=== PATIENT | female | born 1945 | race Caucasian/White ===

== ENCOUNTER 2016-09-16 08:09 | Inpatient (IN) | payer MEDICARE ==
[~2016-09-16] VITALS: Ht 162.6 cm; Wt 61.0 kg
--- NOTE | ~2016-09-16 | CR63 ---
[facility] A Service of [facility] & [facility] RADIOLOGY TEXT RESULTS PATIENT: TIMBO ARMENTA LOCATION: [facility] : 44 UNIT #: [id number] AGE: [address]: Scott Royal MD SEX: F ORDER DR: [id number] [facility] [address] [place], [place] [address] [id number] MR#: [id number] Acc #: [id number] NAME: TIMBO ARMENTA : 1945 SEX: F STUDY DATE/TIME: 09/16/2016 8:58 UNIT: [facility] ROOM: STUDY DESCRIPTION: CR Chest 2 View Attending Physician: Scott Royal M.D. Ordering Physician: Scott Royal M.D. Primary Care Physician: Castillo Soares M.D. MEDICAL IMAGING REPORT This report is preliminary unless electronic signature is present EXAM Chest x-ray, 09/16 INDICATION Right shoulder pain with chronic productive cough. Smoker. Symptoms since May of this year. FINDINGS Two views of the chest are compared with 07/17/2009. There is a large area of rounded consolidation in the right upper lobe with an air-fluid level. This could reflect a large pulmonary abscess. Tuberculosis not excluded. There is underlying emphysema. The left lung is clear. Heart size is normal. This lesion in the right upper lobe could also reflect a large necrotic mass and I cannot exclude some irregularity of the right side first and second ribs. Followup with a contrast enhanced chest CT recommended. IMPRESSION Emphysema with a large area of rounded consolidation in the right upper lobe. This has an air-fluid level within it. This could reflect a large pulmonary abscess or potentially a necrotic superinfected tumor. Tuberculosis is in the differential diagnosis as well. Additionally, there may be some irregularity of the right first and second ribs. Followup with a contrast enhanced chest CT is recommended. STAT * RESULT Dictated by... Raheem L. Manuel, Jr., M.D. THIS IS AN ELECTRONICALLY VERIFIED REPORT Raheem Jackson Jr., M.D. at 09/16/2016 1:51 PM [facility] A Service of [facility] & [facility] RADIOLOGY TEXT RESULTS PATIENT: TIMBO ARMENTA LOCATION: [facility] #: [id number] : 44 UNIT #: [id number] AGE: [address]: Scott Royal MD SEX: F ORDER DR: LAURA/yun TD: 09/16/2016 09:35 JOB #: [id number] MEDICAL IMAGING REPORT Page 1 of 1 COPY
--- NOTE | ~2016-09-16 | EKG ---
PATIENT: TIMBO ARMENTA UNIT #: [id number] Ventricular Rate: 97 BPM Atrial Rate: 97 BPM P-R Interval: 170 ms QRS Duration: 80 ms Q-T Interval: 350 ms QTC Calculation(Bezet): 444 ms P [place]: 58 degrees Calculated R [place]: 26 degrees Calculated T [place]: 55 degrees Diagnosis Line: Normal sinus rhythm Diagnosis Line: Possible Left atrial enlargement Diagnosis Line: Borderline ECG Diagnosis Line: No previous ECGs available Diagnosis Line: Confirmed by RICH WEBB MD ([id number]) on Diagnosis Line: 09/17/2016 8:28:58 AM INTERPRETING MD: JON SAL
--- NOTE | ~2016-09-16 | OR ---
Unit #: [id number] #: [id number] Patient: TIMBO ARMENTA [id number] [address] [address] [id number] I MR#: [id number] NAME: TIMBO ARMENTA ROOM: 241 Date of Procedure: 09/19/2016 Admission Date: 09/16/2016 Surgeon: Hansel Stafford III, M.D. : 1945 Attending Physician: Rand Kolb M.D. Primary Care Physician: Castillo Soares M.D. OPERATIVE REPORT PREOPERATIVE DIAGNOSIS Left forehead laceration after a fall. POSTOPERATIVE DIAGNOSIS Left forehead laceration after a fall PROCEDURE PERFORMED Primary closure of left forehead laceration. Laceration measured 1.5 cm. ANESTHESIA Local. SPECIMENS None. COMPLICATIONS None apparent. INDICATIONS FOR PROCEDURE This is a 70-year-old lady, who fell in the hospital last night. She sustained a fairly deep laceration just above her left eyebrow. We were asked to see the patient for closure of the laceration. DESCRIPTION OF PROCEDURE After verbal consent was obtained, I prepped the area with Betadine. I injected it with 1% plain lidocaine and used a series of interrupted 5-0 nylon sutures to reapproximate the wound. She tolerated the procedure without any problems and she needs to have her sutures removed in seven days. Dictated by... Hansel Stafford III, M.D. VCL/ricol TD: 09/21/2016 04:19 JOB #: [id number] Unit #: [id number] #: [id number] Patient: TIMBO ARMENTA OPERATIVE REPORT Page 1 of 1 X Hansel Stafford III, MD PROCEDURE OPERATIVE NOTE
--- NOTE | ~2016-09-16 | DS ---
Unit #: [id number] #: [id number] Patient: TIMBO BRITO [id number] [address] [address] [id number] I MR#: [id number] NAME: TIMBO BRITO ROOM: 241 Age: 70 Sex: F Admission Date: 09/16/2016 : 1945 Discharge Date: 09/22/2016 Attending Physician: Rand Kolb M.D. Primary Care Physician: Castillo Soares M.D. DISCHARGE SUMMARY FINAL DIAGNOSES 1. Acute hypoxemic respiratory failure. 2. Post obstructive pneumonia. 3. Nonsmall cell lung cancer. 4. Acute bronchitis. 5. Acute exacerbation of chronic obstructive pulmonary disease. 6. Left periorbital laceration, status post closure of 1.5 cm laceration with 5.0 nylon on September 20, 2016, by Dr. Sanchez. 7. Tobacco abuse. 8. Diabetes mellitus type 2. 9. Hyperlipidemia. 10. Compression fracture of L2 with a history of fall. DISCHARGE MEDICATIONS 1. Glipizide 5 mg q.a.m. 2. Vitamin D 50,000 units q. weekly. 3. Omeprazole 20 mg daily. 4. Percocet 5/325 one tablet q.6 p.r.n. 5. Motrin 400 mg q.6 hours. 6. Aspirin 81 mg daily. 7. Furosemide 40 mg daily. 8. Omnicef 300 mg twice a day until September 25, 2016. 9. Nicotine patch 14 mg daily. 10. Prednisone 20 mg q.a.m. 11. Glucophage 1000 mg p.o. b.i.d. CONSULTATIONS DURING HOSPITALIZATION 1. Dr. Cornejo from endocrinology services. 2. Dr. Guo and Dr. Venegas from pulmonary services. 3. Dr. Junior from hematology/oncology services. 4. Dr. Sanchez from [facility]. DIAGNOSTIC STUDIES LABORATORY: Lab workup on discharge: Sodium 135, potassium 4.3, chloride 96, BUN 23, creatinine 0.7. TSH 3.7. WBC 20.1, hemoglobin 12.7, hematocrit 39.9, and platelet count 493,000. (1) 4.8. IMAGING: Significant radiological studies done during hospitalization were: CT scan of the lumbar spine was done on September 16, 2016 which shows mild superior endplate compression fracture of L2. CTA of the chest was done on September 16, 2016, which shows large cavitary lesion in the right upper lobe. Unit #: [id number] #: [id number] Patient: TIMBO BRITO CT scan of the abdomen and pelvis was done on September 17, which shows no acute finding. There is indeterminate 1.2 cm low attenuation lesions subcapsular segment four of the liver. This may simply represent benign cyst. Bone scan was done on September 19, 2016, which was no suspicious findings. CT scan of the head with contrast was done on September 18, 2016 because of the fall. It shows no enhancing intracranial lesion. Most likely moderate chronic microvascular ischemic changes and old lacunar infarct. Facial bone x-rays were done because the patient had a fall. No obvious acute displaced fracture. Hand x-ray was done. No acute fracture. Mild degenerative changes in the wrist, primarily at the first CMC joint. PROCEDURES PERFORMED DURING HOSPITALIZATION 1. Bronchoscopy was done on September 16, 2016 for cavitary lung mass with endobronchial mass on bronchoscopy, large thick yellowish mucus plug in the right upper lobe and right middle lobe which was lavaged and aspirated. Endobronchial mass obstructing completely the apical segment of right upper lobe. 2. Procedure was performed with left forehead laceration closure, measured about 1.5 cm. HOSPITAL COURSE Ms. Timbo Brito is a 70-year-old female, who was admitted to the hospital with increased shortness of breath, weight loss, as well as back pain. Patient had a fall at home. Patient was found to have L2 compression fracture. The patient was seen by interventional radiology for possible kyphoplasty, but she refused at this time. She just wanted to continue pain medication. Dr. Venegas was consulted for postobstructing pneumonia. Patient was treated with IV antibiotics. Bronchoscopy was done and endobronchial mass was seen. The patient had biopsy done and cytology done. Atypical cells were observed. Dr. Junior was consulted. As per Dr. Junior, this is mostly likely nonsmall cell lung cancer. Patient will need chemotherapy and radiation therapy as outpatient. That evaluation will be done by Dr. Junior. The patient needs to followup with them. The patient had a fall during hospitalization. She obtained a laceration of the forehead. LSA was consulted. The patient had stitches placed. She is doing well. CT scan was negative. The patient does have history of tobacco abuse. Tobacco cessation counseling has been done. The patient had nicotine patch during hospitalization. PHYSICAL EXAMINATION On discharge: VITAL SIGNS: Blood pressure 154/79, respiratory rate 21, pulse 60, temperature 98.7, oxygen saturation is 99%. HEENT: Head is normocephalic. CHEST: Fair air entry. Decreased at the right upper lobe. CARDIOVASCULAR: S1, S2 positive. Regular rhythm. ABDOMEN: Soft. Unit #: [id number] #: [id number] Patient: TIMBO BRITO EXTREMITIES: Negative edema. DISCHARGE INSTRUCTIONS 1. The patient is being discharged to rehab in stable condition. 2. Medications as per med rec. 3. Followup primary care provider in one week. 4. Followup Dr. Junior in three to six days to evaluate for chemotherapy and radiation therapy. 5. Room air (2) , care management coordinator to evaluate for home O2. 6. Followup with Dr. Guo in 7-10 days. 7. Tobacco cessation counseling can be done. Dictated by... Rand Kolb M.D. Mann TD: 09/22/2016 10:06 JOB #: [id number] DISCHARGE SUMMARY Page 1 of 1 X Rand Kolb MD X DISCHARGE SUMMARY
--- NOTE | ~2016-09-16 | CT69 ---
[facility] A Service of [facility] & [facility] RADIOLOGY TEXT RESULTS PATIENT: TIMBO ARMENTA LOCATION: A 241-01 : 43 UNIT #: [id number] AGE: [address]: Rand Kolb MD SEX: F ORDER DR: [id number] [facility] [address] [place], [place] [address] [id number] I MR#: [id number] Acc #: [id number] NAME: TIMBO ARMENTA : 1945 SEX: F STUDY DATE/TIME: 09/19/2016 18:25 UNIT: C2A ROOM: [facility] STUDY DESCRIPTION: CT Head W Contrast Attending Physician: Rand Kolb M.D. Ordering Physician: Douglas Junior M.D. Primary Care Physician: Castillo Soares M.D. MEDICAL IMAGING REPORT This report is preliminary unless electronic signature is present EXAM CT head with contrast dated 09/19/2016 COMPARISON None. HISTORY Staging lung cancer which is newly diagnosed on 09/16/2016. Week since January 2016. Dizzy today. TECHNIQUE This CT exam was performed with one or more of the following radiation dose reduction techniques: automatic control, adjustment of mA and/or kV according to patient size, and iterative reconstruction. FINDINGS CT of the head was obtained with IV contrast in the axial plane. Nonenhancing patchy hypodensities are noted in the periventricular and subcortical white matter with more focal lesions in left basal ganglia and adjacent external/extreme capsule in nearby posterior insular cortex, right thalamus. No enhancing solid intracranial mass lesions, hydrocephalus or midline shift. S-shaped nasal septal deviation is noted with minimal left maxillary and left ethmoid sinus mucosal thickening. Mastoid air cells are well aerated. Bones, orbits with the ocular structures do not demonstrate any significant abnormality, IMPRESSION 1. No enhancing intracranial lesions to suggest metastasis in this modality. 2. Scattered hypodensities are noted in the brain as described above suggestive of moderate chronic microvascular ischemic change and old lacunar infarcts, based on age and statistics. They are nonspecific [facility] A Service of [facility] & [facility] RADIOLOGY TEXT RESULTS PATIENT: TIMBO ARMENTA LOCATION: [facility] 241-01 : 44 UNIT #: [id number] AGE: [address]: Rand Kolb MD SEX: F ORDER DR: findings. Dictated by... Nancy Forrest M.D. THIS IS AN ELECTRONICALLY VERIFIED REPORT Nancy Forrest M.D. at 09/20/2016 7:57 PM CPR/rnr TD: 09/20/2016 05:47 JOB #: [id number] MEDICAL IMAGING REPORT Page 1 of 1 COPY
--- NOTE | ~2016-09-16 | CO ---
Unit #: [id number] #: [id number] Patient: TIMBO ARMENTA [id number] [address] [place], [place] [address] [id number] I MR#: [id number] NAME: TIMBO ARMENTA ROOM: 315 Age: 70 Sex: F Admission Date: 09/16/2016 : 1945 Attending Physician: Rand Kolb M.D. Primary Care Physician: Castillo Soares M.D. Consultation Date: 09/16/2016 CONSULTATION REPORT REASON FOR CONSULT Abnormal CT scan. HISTORY OF PRESENT ILLNESS This is a pleasant, 70-year-old female with a past medical history significant for advanced COPD/emphysema and smoking, who presented to the emergency room with back pain. Patient is a poor historian and has given me various stories and unable to provide very consistent and strong history. However, upon interviewing her, she admitted that she has been coughing up productive sputum for the last few months. She described it as a yellowish to greenish and sometimes with some streak of blood. She stated also that she had a recurrent fever over the last few weeks. When I asked her why she has not seem any doctor, she stated that she went to her nurse practitioner who advised her that she will need to see a small electric engine technician but she was never referred to see anyone. Patient worked in the [employer] in the past and she smoked extensively up to two packs per day at some point. She is currently smoking 10 cigarettes every two to three days. Patient has lost weight over the last couple of years but she is unsure how much. PAST MEDICAL HISTORY 1. COPD. 2. Malnutrition. 3. Osteoporosis. 4. Compression fracture. PAST SURGICAL HISTORY None. SOCIAL HISTORY The patient smoked for at least 30 to 40 years. She is currently down to 10 cigarettes every two to three days. She denied any history of drinking or drug abuse. ALLERGIES No known drug allergy. FAMILY HISTORY Unit #: [id number] #: [id number] Patient: TIMBO ARMENTA Breast cancer. REVIEW OF SYSTEMS Twelve-point review of systems was obtained and was negative except for what was mentioned in the HPI. DIAGNOSTIC STUDIES LABORATORY: Creatinine 0.7, chloride 96, CO2 28. White blood count 21.2, hemoglobin 12.3. IMAGING: Chest x-ray and CT chest are consistent with large cavitary mass in the right upper lobe. ASSESSMENT 1. Cavitary mass. 2. Acute exacerbation of chronic obstructive pulmonary disease. 3. Postobstructive pneumonia. 4. Smoking. 5. Malnutrition. 6. Osteoporosis. PLAN 1. Her CT scan is very concerning for lung malignancy; however, invasive abscess due to organism like Pseudomonas and methicillin-resistant Staphylococcus aureus is unable to be ruled out. 2. Given her age, severe emphysema, patient is not a candidate for invasive intervention at this point. The best approach at this point is to proceed with bronchoscopy and washing plus/minus endobronchial biopsy if there is any mass visible. 3. If patient has no mass to identify on the bronchoscopy then she will be treated with antibiotics for four weeks and then we will reassess with followup CT scan. 4. Will continue patient on broad-spectrum antibiotics. 5. Bronchodilator and mucolytics. 6. DVT prophylaxis. I would like to thank Dr. Kolb for allowing me to be part of this patient's care. Dictated by... Arabella Venegas M.D. EA/xiao TD: 09/16/2016 22:07 JOB #: [id number] Unit #: [id number] #: [id number] Patient: TIMBO ARMENTA CONSULTATION REPORT Page 1 of 1 X ARABELLA PEREZ MD CONSULTATION REPORT
--- NOTE | ~2016-09-16 | CR101 ---
[facility] A Service of [facility] & [facility] RADIOLOGY TEXT RESULTS PATIENT: TIMBO ARMENTA LOCATION: A 241-01 : 43 UNIT #: [id number] AGE: [address]: Rand Kolb MD SEX: F ORDER DR: [id number] [facility] [address] [place], [place] [address] [id number] I MR#: [id number] Acc #: [id number] NAME: TIMBO ARMENTA : 1945 SEX: F STUDY DATE/TIME: 09/19/2016 21:22 UNIT: [facility] ROOM: [facility] STUDY DESCRIPTION: CR Facial Bones Min 3 Views Attending Physician: Rand Kolb M.D. Ordering Physician: Rand Kolb M.D. Primary Care Physician: Castillo Soares M.D. MEDICAL IMAGING REPORT This report is preliminary unless electronic signature is present EXAM Facial bone series dated 09/19/[address] head with contrast dated 09/19/2016. HISTORY Patient fell today with facial pain and bleeding in the left side of the facie. FINDINGS Four views of the face were obtained. No obvious acute displaced fracture is seen. Mastoid air cells and paranasal sinuses appear to be relatively well aerated. CT of the face is more sensitive in evaluation of subtle nondisplaced facial fractures. Orbits appear to be intact also. Dictated by... Nancy Forrest M.D. THIS IS AN ELECTRONICALLY VERIFIED REPORT Nancy Forrest M.D. at 09/20/2016 7:57 PM CPR/rnr TD: 09/20/2016 04:06 JOB #: [id number] MEDICAL IMAGING REPORT Page 1 of 1 COPY
--- NOTE | ~2016-09-16 | NM8 ---
[facility] A Service [facility] RADIOLOGY TEXT RESULTS PATIENT: TIMBO ARMENTA LOCATION: [facility] 241-01 : 44 UNIT #: [id number] AGE: [address]: Rand Kolb MD SEX: F ORDER DR: [id number] [facility] [address] [place], [place] [address] [id number] I MR#: [id number] Acc #: [id number] NAME: TIMBO ARMENTA : 1945 SEX: F STUDY DATE/TIME: 09/19/2016 17:29 UNIT: [facility] ROOM: [facility] STUDY DESCRIPTION: NM Bone or Joint Whole Body Attending Physician: Rand Kolb M.D. Ordering Physician: Douglas Junior M.D. Primary Care Physician: Castillo Soares M.D. MEDICAL IMAGING REPORT This report is preliminary unless electronic signature is present EXAM Whole-body bone scan HISTORY Right lung cancer diagnosed 2 days ago. Bone scan for cancer staging. Back and neck pain. Osteoporosis. COMPARISON Lumbar spine and shoulder x-ray studies 09/16/[address] chest 09/16/[address] abdomen and pelvis 09/17/2016. FINDINGS Following injection of 29.3 mCi technetium MDP, whole body bone scan was performed, demonstrating mild degenerative uptake in both shoulders and at the sternoclavicular joints. No suspicious tracer uptake on the remainder of the exam. No abnormal soft tissue uptake. IMPRESSION No suspicious findings. There are mild degenerative changes in the shoulders and sternoclavicular joints. Dictated by... Que Qureshi M.D. THIS IS AN ELECTRONICALLY VERIFIED REPORT Que Qureshi M.D. at 09/20/2016 1:24 PM DFAbdelrahman/nelly TD: 09/20/2016 10:33 JOB #: [id number] MEDICAL IMAGING REPORT [facility] A Service [facility] RADIOLOGY TEXT RESULTS PATIENT: TIMBO ARMENTA LOCATION: [facility] 241-01 : 44 UNIT #: [id number] AGE: [address]: Rand Kolb MD SEX: F ORDER DR: Page 1 of 1 COPY
--- NOTE | ~2016-09-16 | OR ---
Unit #: [id number] #: [id number] Patient: TIMBO ARMENTA [id number] [address] [address] [id number] I MR#: [id number] NAME: TIMBO ARMENTA ROOM: [facility] Date of Procedure: 09/17/2016 Admission Date: 09/16/2016 Surgeon: Arabella Venegas M.D. : 1945 Attending Physician: Rand Kolb M.D. Primary Care Physician: Castillo Soares M.D. PROCEDURE OPERATIVE NOTE PROCEDURE Therapeutic and diagnostic bronchoscopy with bronchoalveolar lavage and forceps endobronchial mass biopsy. INDICATION FOR PROCEDURE Cavitary lung mass with endobronchial mass on bronchoscopy. FINDINGS 1. Large, thick, yellowish mucus plug in the right upper lobe and right middle lobe which was lavaged and aspirated. 2. Endobronchial mass obstructing completely the apical segment of the right upper lobe. PREMEDICATION 1. Fentanyl 75 mcg IV. 2. Versed 3 mg IV. COMPLICATION None. DESCRIPTION OF THE PROCEDURE An informed consent was obtained from the patient herself after explaining the benefit and risk of this procedure. The patient was prepped and positioned in the proper way, then she was premedicated with fentanyl and versed and then the bronchoscope was advanced through her oral cavity at the level of the vocal cords. 2% lidocaine was instilled and the bronchoscope was advanced into the trachea and at the level of the robert. 1% lidocaine x10 mL was instilled and the bronchoscope was advanced into the left bronchus and the left upper lobe, left lower lobe and lingula were examined which appeared slightly erythematous with mild amount of thin secretions which was lavaged and aspirated and then the bronchoscope was retracted and then readvanced into the right main bronchus and the right upper lobe, right middle lobe and right lower lobe were examined. The patient was noted to have a large, thick, yellowish mucus plug in the right upper lobe and right middle lobe which was lavaged and aspirated. After that, a mass obstructing the apical segment of the right upper lobe was noted. Lavage was obtained from the right upper lobe, then endobronchial biopsy via forceps x6 were obtained with only mild hemorrhage which was stabilized with some ice cold saline. The bronchoscope was retracted out then and patient tolerated her procedure well with no immediate complications. Unit #: [id number] #: [id number] Patient: TIMBO ARMENTA Dictated by... Kathrin Phipps TD: 09/17/2016 11:29 JOB #: [id number] PROCEDURE OPERATIVE NOTE Page 1 of 1 X ARABELLA PEREZ MD PROCEDURE OPERATIVE NOTE
--- NOTE | ~2016-09-16 | CO ---
Unit #: [id number] #: [id number] Patient: TIMBO BRITO [id number] [address] [place], [place] [address] [id number] I MR#: [id number] NAME: TIMBO BRITO ROOM: 241 Age: 70 Sex: F Admission Date: 09/16/2016 : 1945 Attending Physician: Rand Kolb M.D. Primary Care Physician: Castillo Soares M.D. 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 CHIEF COMPLAINT Increased shortness of breath, weight loss, as well as back pain. HISTORY OF PRESENT ILLNESS Miss Brito is a 70-year-old female with extensive smoking history. She presented with symptoms of pneumonia with associated weight loss. She also stated that she hurt her back prompting medical attention. She was found on x-ray to have a very large lesion of the right upper lobe. This lesion appeared to have chest wall and potential rib involvement. Patient underwent a bronchoscopy by Dr. Venegas dated 09/17/16. Patient was noted at that time to have thick yellow mucus plugs to the right upper lobe as well as an endobronchial mass completely obstructing apical segment of the right upper lobe. Biopsies were performed and final pathology is consistent with an infiltrating squamous cell carcinoma of the right upper lobe. Patient was in a great deal of pain. She has been treated with pain medications as well as multiple antibiotics while inhouse and has improved. Patient was initially scheduled for CT-guided biopsy but this has been canceled. The patient has seen Dr. Junior and now staging workup is ongoing including CT scan of the brain with contrast as well as total body bone scan. I have been asked to see this patient regarding possible definitive management RECOMMENDATIONS We will certainly need to complete our staging workup on Miss Brito. She will need studies already ordered as well as an outpatient PET CT scan. Possibilities include primary surgical resection or primary chemoradiotherapy. This will be based on staging workup. It might be that Miss Brito has insufficient pulmonary reserve for such a procedure but we will see if that is a bridge we need to cross once we know extent of disease. I have discussed potential side effects and complications associated with chemoradiotherapy as that is most likely her treatment course. She understands these things. We will have further discussions between the family as well as Dr. Junior and myself and arrive on a final treatment plan once we have completed our workup. It is my pleasure to participate in her care. PAST MEDICAL HISTORY List of chronic medical illnesses not available at this time. Patient does suffer from GE reflux disease, does have history of pneumonia, history of foot cellulitis, also apparent diabetes. Unit #: [id number] #: [id number] Patient: TIMBO BRITO MEDICATIONS Currently include vancomycin, insulin, ibuprofen, piperacillin, Percocet and NicoDerm patch. SOCIAL HISTORY Patient has been a heavy smoker for many years. Patient denies alcohol abuse. FAMILY HISTORY Noncontributory. REVIEW OF SYSTEMS Patient denies headache. She had significant back pain when bending over, prompting her current hospital admission. She reports a significant weight loss, unexplained, a loss of appetite, shortness of breath and coughing and bringing up a great deal of foul-smelling phlegm. She reports increased urinary frequency. PHYSICAL EXAMINATION NOTE: Examination is limited at this time. HEENT: Pupils are equally round and reactive to light and accommodation. Extraocular movements within normal limits. NEUROLOGIC: No neurological deficit appreciated. NECK: Was without gross adenopathy. LUNGS: Breath sounds distant. ABDOMEN: Soft. EXTREMITIES: Without gross edema. DIAGNOSTIC STUDIES LABORATORY DATA: Glucose 83, sodium 136, calcium 9.7, albumin very low at 2.7, elevation of alkaline phosphatase at 153, WBC 25.5, hemoglobin 11.4, platelet count 559,000. Approximately 50 minutes spent discussing case with patient. Dictated by... Kathrin Esparza/xiao TD: 09/19/2016 18:46 JOB #: [id number] CC: Douglas Junior M.D. [facility] Yandel Venegas M.D. Unit #: [id number] #: [id number] Patient: TIMBO BRITO CONSULTATION REPORT Page 1 of 1 X Marcelino Kee MD X CONSULTATION REPORT
--- NOTE | ~2016-09-16 | CR142 ---
[facility] A Service of [facility] & [facility] RADIOLOGY TEXT RESULTS PATIENT: TIMBO ARMENTA LOCATION: [facility] 241 : 44 UNIT #: [id number] AGE: [address]: Rand Kolb MD SEX: F ORDER DR: [id number] [facility] [address]. [place], [place] [address] [id number] I MR#: [id number] Acc #: [id number] NAME: TIMBO ARMENTA : 1945 SEX: F STUDY DATE/TIME: 09/19/2016 21:35 UNIT: [facility] ROOM: [facility] STUDY DESCRIPTION: CR Hand Min 3 Views Rt Attending Physician: Rand Klob M.D. Ordering Physician: Rand Kolb M.D. Primary Care Physician: Castillo Soares M.D. MEDICAL IMAGING REPORT This report is preliminary unless electronic signature is present EXAM Right hand 3 views HISTORY Hand pain and injury after fall today. FINDINGS 3 views of the right hand demonstrate normal bone alignment. No fracture or dislocation. Mild degenerative changes in the wrist, primarily at the first CMC joint. Mild multifocal degenerative changes in the hand. IMPRESSION No acute findings. No fracture. Mild degenerative changes in the wrist, primarily at the first CMC joint. Dictated by... Que Qureshi M.D. THIS IS AN ELECTRONICALLY VERIFIED REPORT Que Qureshi M.D. at 09/20/2016 1:22 PM DFL/rnr TD: 09/20/2016 05:27 JOB #: [id number] MEDICAL IMAGING REPORT Page 1 of 1 COPY
--- NOTE | ~2016-09-16 | CR230 ---
[facility] A Service of [facility] & [facility] RADIOLOGY TEXT RESULTS PATIENT: TIMBO ARMENTA LOCATION: [facility] [address]-06 : 44 UNIT #: [id number] AGE: [address]: Rand Kolb MD SEX: F ORDER DR: [id number] [facility] [address] [place], [place] [address] [id number] I MR#: [id number] Acc #: [id number] NAME: TIMBO ARMENTA : 1945 SEX: F STUDY DATE/TIME: 09/16/2016 9:00 UNIT: [facility] ROOM: [id number] STUDY DESCRIPTION: CR Shoulder Min 2 View Rt Attending Physician: Rand Kolb M.D. Ordering Physician: Scott Royal M.D. Primary Care Physician: Castillo Soares M.D. MEDICAL IMAGING REPORT This report is preliminary unless electronic signature is present EXAM Right shoulder 09/16/2016 INDICATION Shoulder pain since May of this year. FINDINGS 3 views of the shoulder were obtained. No fracture or dislocation is seen in the shoulder. There is no AC joint separation. There is some mild AC joint and glenohumeral joint arthropathy. The primary abnormality is mass-like consolidation with fluid level in the right upper lobe. There are a erosive changes noted in the right first, second, and third ribs which could be due to tumor involvement or infection. Followup with contrast-enhanced chest CT recommended. IMPRESSION 1. The shoulder is negative except for some mild AC joint and glenohumeral joint arthropathy. 2. Abnormal consolidation with a fluid level in the right upper lobe as seen on the chest x-ray. Erosive changes are noted in the adjacent right first, second, and third ribs. This could be due to infection or direct tumor involvement. Contrast-enhanced chest CT is recommended. Dictated by... Raheem Jackson Jr., M.D. THIS IS AN ELECTRONICALLY VERIFIED REPORT Raheem Jackson Jr., M.D. at 09/16/2016 3:50 PM RLK/nelly TD: 09/16/2016 15:[address] [facility] A Service of [facility] & [facility] RADIOLOGY TEXT RESULTS PATIENT: TIMBO ARMENTA LOCATION: [facility] [address]-04 : 44 UNIT #: [id number] AGE: [address]: Rand Kolb MD SEX: F ORDER DR: JOB #: [id number] MEDICAL IMAGING REPORT Page 1 of 1 COPY
--- NOTE | ~2016-09-16 | CT2 ---
[facility] A Service of [facility] RADIOLOGY TEXT RESULTS PATIENT: TIMBO ARMENTA LOCATION: [facility] : 44 UNIT #: [id number] AGE: [address]: Rand Kolb MD SEX: F ORDER DR: [id number] [facility] [address] [place], [place] [address] [id number] I MR#: [id number] Acc #: [id number] NAME: TIMBO ARMENTA : 1945 SEX: F STUDY DATE/TIME: 09/17/2016 23:21 UNIT: [facility] ROOM: [facility] STUDY DESCRIPTION: CT Abd and Pelv W Cont Attending Physician: Rand Kolb M.D. Ordering Physician: Rand Kolb M.D. Primary Care Physician: Castillo Soares M.D. MEDICAL IMAGING REPORT This report is preliminary unless electronic signature is present EXAM CT abdomen and pelvis with contrast INDICATION Nausea today. Lung cancer. Observation for metastatic disease. PROCEDURE Contrast-enhanced CT of the abdomen and pelvis. This CT examination was performed with one or more of the following radiation dose reduction techniques: automatic exposure control, adjustment of mA and/or kV according to patient size, and iterative reconstruction. COMPARISON None. FINDINGS Centrilobular emphysema. ABDOMEN WITH CONTRAST: 1.2 cm indeterminate hypodensity subcapsular segment 4. The spleen, kidneys, adrenal glands, pancreas, gallbladder unremarkable. A few uncomplicated sigmoid diverticula. Moderate colonic stool burden. PELVIS WITH CONTRAST: No pelvic mass or fluid. No aggressive appearing bone lesion. IMPRESSION 1. No acute findings in the abdomen or pelvis. No convincing evidence for metastatic disease. 2. There is a indeterminate 1.2 cm low-attenuation lesion subcapsular segment 4 of the liver. It may simply represent a benign cyst but would be better characterized with MRI or multiphase liver protocol CT. [facility] A Service of [facility] & [facility] RADIOLOGY TEXT RESULTS PATIENT: TIMBO ARMENTA LOCATION: [facility] : 44 UNIT #: [id number] AGE: [address]: Rand oKlb MD SEX: F ORDER DR: 3. Moderately large colonic stool burden. Dictated by... Maldonado Dooley M.D. THIS IS AN ELECTRONICALLY VERIFIED REPORT Maldonado Dooley M.D. at 09/23/2016 8:33 AM LETICIA/brandee TD: 09/18/2016 09:19 JOB #: [id number] MEDICAL IMAGING REPORT Page 1 of 1 COPY
--- NOTE | ~2016-09-16 | CR181 ---
[facility] A Service of [facility] & [facility] RADIOLOGY TEXT RESULTS PATIENT: TIMBO ARMENTA LOCATION: [facility] [address]-66 : 44 UNIT #: [id number] AGE: [address]: Rand Kolb MD SEX: F ORDER DR: [id number] [facility] [address] [place], [place] [address] [id number] I MR#: [id number] Acc #: [id number] NAME: TIMBO ARMENTA : 1945 SEX: F STUDY DATE/TIME: 09/16/2016 9:08 UNIT: [facility] ROOM: [id number] STUDY DESCRIPTION: CR Lumbar Spine 2 or 3 Views Attending Physician: Rand Kolb M.D. Ordering Physician: Scott Royal M.D. Primary Care Physician: Castillo Soares M.D. MEDICAL IMAGING REPORT This report is preliminary unless electronic signature is present EXAM Lumbar spine, 09/16 INDICATION Low back pain since May of this year. Back giving out on patient. FINDINGS Three views of the lumbar spine were obtained. No comparison. There is degenerative endplate disease at multiple levels. There is a mild superior endplate fracture of L2 which is age indeterminate in the absence of comparison studies. Incidental note is made of atherosclerotic disease. There is facet arthropathy in the lower lumbar spine. IMPRESSION Mild superior endplate fracture of L2 which is age indeterminate. I have no comparisons. The exam is otherwise remarkable for relatively mild degenerative disease for patient age. If there is concern for acute fracture, this could be assessed with CT. Dictated by... Raheem Jackson Jr., M.D. THIS IS AN ELECTRONICALLY VERIFIED REPORT Raheem Jackson Jr., M.D. at 09/16/2016 3:50 PM LAURA/yun TD: 09/16/2016 15:26 JOB #: [id number] MEDICAL IMAGING REPORT Page 1 of 1 COPY
--- NOTE | ~2016-09-16 | CT98 ---
[facility] A Service of [facility] & [facility] RADIOLOGY TEXT RESULTS PATIENT: TIMBO ARMENTA LOCATION: [facility] 315-01 : 44 UNIT #: [id number] AGE: [address]: Rand Kolb MD SEX: F ORDER DR: [id number] [facility] [address]. [place], [place] [address] [id number] I MR#: [id number] Acc #: [id number] NAME: TIMBO ARMENTA : 1945 SEX: F STUDY DATE/TIME: 09/16/2016 12:31 UNIT: [address] ROOM: [facility] STUDY DESCRIPTION: CT Lumbar Spine Wo Cont Attending Physician: Rand Kolb M.D. Ordering Physician: Scott Royal M.D. Primary Care Physician: Castillo Soares M.D. MEDICAL IMAGING REPORT This report is preliminary unless electronic signature is present EXAM CT lumbar spine. HISTORY Mid-back pain after bending over yesterday. HISTORY Axial images performed through the lumbar spine without contrast. Multiplanar reconstructed images reviewed at a workstation. This CT exam was performed with one or more of the following radiation dose reduction techniques: automatic exposure control, adjustment of mA and/or kV according to patient size, and iterative reconstruction. FINDINGS There is L2 superior plate compression fracture with approximately 20% loss of the vertebral body height. No retropulsed fragment. At L3-L4, there is circumferential disc bulging and facet hypertrophic changes contributing to [id number] spinal foraminal stenosis. At L4-L5, there is also circumferential disc bulging and facet hypertrophic changes contributing to kswr-ld-[id number] spinal and foraminal stenosis. Mild aortic and iliac atherosclerotic change is identified. Generalized osteopenia. Minimal lower lumbar spine facet arthropathy. IMPRESSION 1. Mild superior endplate compression fracture at L2 with approximately 20% loss of the central vertebral body height. This is most likely on the basis of underlying osteoporosis and I suspect represents an acute fracture given the zone of sclerosis along the superior margin of the fracture. No retropulsed fragment. [facility] A Service of [facility] & [facility] RADIOLOGY TEXT RESULTS PATIENT: TIMBO ARMENTA LOCATION: [facility] 315-01 : 44 UNIT #: [id number] AGE: [address]: Rand Kolb MD SEX: F ORDER DR: 2. L3-L4 and L4-L5 spinal stenosis due to a combination of disc bulging and facet hypertrophic change. Dictated by... Vita Medina M.D. THIS IS AN ELECTRONICALLY VERIFIED REPORT Vita Medina M.D. at 09/17/2016 7:58 AM BARON/jil TD: 09/16/2016 21:37 JOB #: [id number] MEDICAL IMAGING REPORT Page 1 of 1 COPY
--- NOTE | ~2016-09-16 | CO ---
Unit #: [id number] #: [id number] Patient: TIMBO ARMENTA [id number] [address] [place], [place] [address] [id number] I MR#: [id number] NAME: TIMBO ARMENTA ROOM: 241 Age: 70 Sex: F Admission Date: 09/16/2016 : 1945 Attending Physician: Rand Kolb M.D. Primary Care Physician: Castillo Soares M.D. Consultation Date: 09/20/2016 CONSULTATION REPORT HISTORY OF PRESENT ILLNESS Ms. Anderson is a 70-year-old female with long history of tobacco abuse, who is in the hospital, being evaluated for a right lung mass consistent with squamous cell carcinoma. She also was noted to have a L2 compression fracture and significant weight loss. Last night, she was getting up out of bed and tripped over her oxygen line, falling and hitting her left forehead on the edge of the bed, causing about a 6 to 8 mm laceration right over the left eyebrow. The bleeding has been controlled, but there was a bit of separation of the wound edges and every time she blinks her eyes, it separates the wound edges. She has periorbital ecchymoses as you would expect. PAST MEDICAL HISTORY Squamous cell carcinoma of the lung, compression fracture of L2, diabetes, COPD, history of throat polyps, anemia, previous rectovaginal repair, and hysterectomy. MEDICATIONS Lasix, cyclobenzaprine, glipizide, omeprazole, atorvastatin, vitamin D, metformin, artificial Tears, Antonio Aspirin, Lortab. ALLERGIES She is allergic to albuterol, phenylephrine, erythromycin, Benadryl, and Lasix. FAMILY HISTORY Noncontributory. SOCIAL HISTORY Long-term smoker. REVIEW OF SYSTEMS Otherwise unremarkable. In particular, she did not have lightheadedness, dizziness, or syncope. PHYSICAL EXAMINATION GENERAL: The patient is awake, alert, and oriented. VITAL SIGNS: Temperature 98.4. Vital signs are stable. HEENT: Laceration as described. CARDIAC: Regular rate and rhythm. LUNGS: Clear. ABDOMEN: Soft. EXTREMITIES: No edema. NEUROLOGIC: Grossly intact. Unit #: [id number] #: [id number] Patient: TIMBO ARMENTA DIAGNOSTIC STUDIES LABORATORY STUDIES: Most recent basic metabolic panel was within normal limits. White count 25,500; hemoglobin 11.4; platelets 559,000. ASSESSMENT AND PLAN A 70-year-old female, who tripped over her oxygen line and sustained a laceration over the left eye. Every time she blinks her eyes, it separates the wound edges of this wound. She would benefit from a few sutures to keep the skin edges approximated. I discussed that with the patient. She is in agreement. This could be done at the bedside under local anesthetic. Dictated by... Raheem Sanchez M.D. LILIANA/roslyn TD: 09/20/2016 08:12 JOB #: [id number] CONSULTATION REPORT Page 1 of 1 X Raheem Sanchez MD X CONSULTATION REPORT
--- NOTE | ~2016-09-16 | CO ---
Unit #: [id number] #: [id number] Patient: TIMBO ARMENTA [id number] [address] [address] [id number] I MR#: [id number] NAME: TIMBO ARMENTA ROOM: 241 Age: 70 Sex: F Admission Date: 09/16/2016 : 1945 Attending Physician: Rand Kolb M.D. Primary Care Physician: Castillo Soares M.D. Consultation Date: 09/21/2016 CONSULTATION REPORT REASON FOR CONSULTATION Management of the diabetes. HISTORY OF PRESENT ILLNESS This is a 70-year-old female with history of stage III squamous cell carcinoma of the right upper lobe, was on steroids. Her blood sugars were elevated. She was started on insulin. The patient has a very poor intake. She had some recurrent episodes of hypoglycemia. I have been consulted for further management. REVIEW OF SYSTEMS Remarkable for shortness of air, generalized weakness, weight loss. MEDICAL HISTORY Squamous cell carcinoma of the lung, compression fractures of L2, diabetes mellitus, COPD. PAST SURGICAL HISTORY Hysterectomy. MEDICATIONS Current medications list is reviewed. The patient is on Levemir 15 units b.i.d. and NovoLog 5 units a.c. and h.s., Glucotrol 5 mg b.i.d., NovoLog medium dose sliding scale, prednisone 40 mg daily, Protonix. PHYSICAL EXAMINATION GENERAL: She is awake, alert, oriented to time, place, and person. VITAL SIGNS: Stable. VITAL SIGNS: Temperature 97.7, pulse 65, respirations 16, and blood pressure 111/42. HEENT: EOMI. Pupils equally reactive to light. NECK: Supple. No thyromegaly noted. CHEST: Good air entry. CVS: Regular rhythm. No murmurs. ABDOMEN: Soft and nontender. Bowel sounds positive. EXTREMITIES: No edema. NEUROLOGIC: Nonfocal. Moving all extremities. DIAGNOSTIC STUDIES LABORATORY RESULTS: Reviewed. Creatinine is 0.6, potassium is 5.4. A1c 6.3. ASSESSMENT 1. Type 2 diabetes mellitus. Unit #: [id number] #: [id number] Patient: TIMBO ARMENTA 2. Recurrent hypoglycemia likely due to the poor p.o. intake and discontinue Solu-Medrol. 3. Squamous cell carcinoma. PLAN The patient is on tapered steroid doses, which has been decreased to 20 mg daily. Discontinue Levemir and schedule NovoLog with meals. Continue medium dose sliding scale NovoLog. Change Glucotrol 5 mg p.o. q.a.m. daily. Felibertou-Matt fraga.cDilip and h.s. Thanks again for consultation. Dictated by... Kathrin Christine/roslyn TD: 09/21/2016 15:05 JOB #: [id number] CONSULTATION REPORT Page 1 of 1 X Jeri Cornejo MD X CONSULTATION REPORT
--- NOTE | ~2016-09-16 | CT16 ---
[facility] A Service of [facility] & [facility] RADIOLOGY TEXT RESULTS PATIENT: TIMBO ARMENTA LOCATION: [facility] 315-01 : 44 UNIT #: [id number] AGE: [address]: Rand Kolb MD SEX: F ORDER DR: [id number] [facility] [address] [place], [place] [address] [id number] I MR#: [id number] Acc #: [id number] NAME: TIMBO ARMENTA : 1945 SEX: F STUDY DATE/TIME: 09/16/2016 12:33 UNIT: [address] ROOM: [facility] STUDY DESCRIPTION: CT Angio Chest for PE Attending Physician: Rand Kolb M.D. Ordering Physician: Scott Royal M.D. Primary Care Physician: Castillo Soares M.D. MEDICAL IMAGING REPORT This report is preliminary unless electronic signature is present EXAM CT chest, PE protocol HISTORY 70-year-old female with a large right upper lobe lung mass. Patient complaining of right shoulder pain. No prior history of malignancy. COMPARISON STUDIES Chest radiographs 09/16/2016 and 07/17/2009. TECHNIQUE Axial images performed through the chest following IV contrast. Sagittal, 3-D, and coronal reconstructed images reviewed at a workstation. This CT exam was performed with one or more of the following radiation dose reduction techniques: automatic exposure control, adjustment of mA and/or kV according to patient size, and iterative reconstruction. FINDINGS Examination demonstrates a large cavitary mass right upper lobe measuring approximately 9.5 x 11.2 transverse dimensions and up to 11.8 cm in cephalocaudal dimension. This is also central low attenuation compatible with cavitation and necrosis with an air-fluid level in the nondependent portion of the lesion. There is a mildly thickened wall with some evidence of post-obstructive pneumonitis or adjacent atelectasis. The lesion extends through the chest wall with destruction of the second rib and portions of the third rib and portions of the first rib. This supports a more aggressive lesion and it strongly supports that this represents a primary lung neoplasm with central necrosis. Remainder of the lung parenchyma demonstrates severe emphysema with centrilobular emphysema. No effusions. Trachea, bronchi unremarkable. There is some mucus within the trachea which may reflect chronic bronchitis. [facility]. [facility] A Service of [facility] RADIOLOGY TEXT RESULTS PATIENT: TIMBO ARMENTA LOCATION: [facility] 315-01 : 44 UNIT #: [id number] AGE: [address]: Rand Kolb MD SEX: F ORDER DR: Normal enhancement of the pulmonary arteries. No evidence of embolus. Heart size within normal limits. Upper abdomen demonstrates a slight enlargement of the left adrenal gland but no definite metastasis. Osseous structures demonstrate previously visualized L2 compression fracture. This is still felt to represent an osteoporotic fracture and no definite lytic process is identified. Thoracic inlet, extra-thoracic soft tissues are unremarkable. There is mildly enlarged precarinal node measuring 2.3 x 1.6 cm. There are also a few small upper anterior tracheal nodes and right periaortic nodes. IMPRESSION 1. Large cavitary lesion right upper lobe with surrounding compressive atelectasis or post-obstructive pneumonitis. There is invasion of the lesion through the chest wall with marked destruction of the second rib as well as partial destruction of the adjacent third and first ribs. Given the aggressive nature and central cavitation, this most likely represents a cavitary neoplasm, possibly representing squamous cell carcinoma. 2. Changes are superimposed on background centrilobular emphysema. 3. Mild enlargement of the left adrenal gland but no definite metastatic lesion. 4. Partially visualized is the patient's L2 superior endplate compression fracture, probably on the basis of osteoporosis as there does not appear to be a definitive of bone lesion to suggest metastatic disease. Dictated by... Vita Medina M.D. THIS IS AN ELECTRONICALLY VERIFIED REPORT Vita Medina M.D. at 09/17/2016 7:58 AM BARON/jil TD: 09/16/2016 22:07 JOB #: [id number] MEDICAL IMAGING REPORT Page 1 of 1 COPY
--- NOTE | ~2016-09-16 | XA231 ---
[facility] A Service of [facility] & [facility] RADIOLOGY TEXT RESULTS PATIENT: TIMBO BRITO LOCATION: [facility] 241-01 : 44 UNIT #: [id number] AGE: [address]: Rand Kolb MD SEX: F ORDER DR: [id number] [facility] [address] [place], [place] [address] [id number] I MR#: [id number] Acc #: [id number] NAME: TIMBO BRITO : 1945 SEX: F STUDY DATE/TIME: 09/16/2016 14:05 UNIT: [facility] ROOM: [facility] STUDY DESCRIPTION: XA Consult Attending Physician: Rand Kolb M.D. Ordering Physician: Rand Kolb M.D. Primary Care Physician: Castillo Soares M.D. MEDICAL IMAGING REPORT This report is preliminary unless electronic signature is present EXAM Kyphoplasty consult FINDINGS Ms. Brito is a 70-year-old lady who was noted to have a compression fracture at L2 after complaining of back pain after the patient bent over on September 15, 2016. I met with Ms. Brito to discuss kyphoplasty. At this time, she does not desire the procedure. She will contact us if she changes her mind. Dictated by... Luci Sin M.D. THIS IS AN ELECTRONICALLY VERIFIED REPORT Luci Sin M.D. at 09/19/2016 5:50 PM EFRAIN/brandee TD: 09/19/2016 10:31 JOB #: [id number] MEDICAL IMAGING REPORT Page 1 of 1 COPY
[~2016-09-16 08:09] MED LIST: ALBUTEROL17 GM INH; ASPIRIN81 M2 PO; CIPRO PO; CLEOCIN PO; DOXYCYCLINE150 MG PO; LIDODERM30 EA TOP; LORTAB 7.5-5001 TAB PO; METFORMIN PO; NORCO1 TAB 10/3 PO; TYLENOL #3 PO; ZOFRAN PO
[2016-09-16 10:53] LABS: BASOPHIL# 0.2 X10e3 (0-0.3); BASOPHIL% 0.8 % (0-2.5); EOSINOPHIL# 0.1 X10e3 (0-0.7); EOSINOPHIL% 0.5 % (0.0-7.0); HEMATOCRIT 38.3 % (35.0-45.0); HEMOGLOBIN 12.3 gm/dL (12.0-16.0); LYMPHOCYTE# 2.2 X10e3 (1.0-3.5); LYMPHOCYTE% 10.6 % (17.0-45.0); MEAN CELL VOLUME 87.5 FL (83-96); MEAN CORPUSCULAR HEMOGLOBIN 28.1 PG (28-34); MEAN CORPUSCULAR HGB CONC 32.2 g/dL (30-36); MEAN PLATELET VOLUME 7.1 FL (6.5-11.5); MONOCYTE# 1.5 X10e3 (0-1.0); MONOCYTE% 7.2 % (3.0-12.0); NEUTROPHIL# 17.1 X10e3 (1.5-7.1); NEUTROPHIL% 80.9 % (40-75); PLATELET COUNT 538 X10e3 (140-420); RED BLOOD COUNT 4.37 X10e (3.90-5.30); RED CELL DISTRIBUTION WIDTH 15.5 % (11.0-15.5); WHITE BLOOD COUNT 21.2 X10e3 (4.0-10.5)
[2016-09-16 10:54] LABS: DIFF IND YES
[2016-09-16 11:15] LABS: ALBUMIN SERUM 2.7 g/dL (3.5-5.0); BILIRUBIN, DIRECT 0.1 mg/dL (0.0-0.2); BILIRUBIN,INDIRECT 0.3 mg/dL (0.0-0.9); BILIRUBIN,TOTAL 0.4 mg/dL (0.2-2.0); CREATININE SERUM 0.7 mg/dL (0.6-1.4); GLOM FILT RATE Estimated 87.2 mL/min (>60); POTASSIUM 4.2 mmol/L (3.5-5.1); PROTEIN TOTAL SERUM 7.1 g/dL (6.0-8.3)
[2016-09-16 11:16] LABS: PLATELET ESTIMATE INCREASED (NORMAL)
[2016-09-16 11:17] LABS: ANISOCYTOSIS SL
[2016-09-16 13:52] LABS: POC - CKMB 1.2 ng/mL (0.0-7.9); POC - TROPONIN <0.05 ng/mL (<=0.05)
[2016-09-16 14:46] LABS: URINE SOURCE CLEAN CATCH
[2016-09-16 14:51] LABS: URINE APPEARANCE CLEAR; URINE BILIRUBIN NEG (NEG); URINE BLOOD NEG (NEG); URINE COLOR YELLOW; URINE GLUCOSE NEG (NEG); URINE KETONE NEG (NEG); URINE LEUKOCYTE ESTERASE NEG (NEG); URINE NITRATE NEG (NEG); URINE PH 5.5 (5-8); URINE PROTEIN NEG (NEG); URINE SPECIFIC GRAVITY 1.025 (1.003-1.035)
[2016-09-16 15:01] LABS: CULTURE INDICATED? NO
[2016-09-16] MEDS ORDERED: LIPITOR20 MG PO (16:54)
[2016-09-16] MEDS ORDERED: PATIENT'S PHARMACY (16:54)
[2016-09-16] MEDS ORDERED: VITAMIN D250000 UNIT PO (16:54)
[2016-09-16] MEDS ORDERED: METFORMIN PO (16:54)
[2016-09-16] MEDS ORDERED: ASPIRIN81 M2 PO (16:54)
[2016-09-16] MEDS ORDERED: GLUCOTROL XL5 M1 PO (16:54)
[2016-09-16] MEDS ORDERED: ARTIFICIAL TEAR15 M9 OU (16:55)
[2016-09-16] MEDS ORDERED: HYDROCODON-ACE1 EAC9 PO (21:47)
[2016-09-16] MEDS ORDERED: OMEPRAZOLE20 M2 PO (21:49)
[2016-09-16] MEDS ORDERED: ATROVENT 0.03%30 ML (21:50)
[2016-09-16] MEDS ORDERED: PROAIR RESPICL90 MCG INH (21:52)
[2016-09-16] MEDS ORDERED: LASIX20 MG PO (21:56)
[2016-09-17 06:30] LABS: BUN/CREATININE RATIO 27.14; CALCIUM SERUM 9.6 mg/dL (8.4-10.2); CREATININE SERUM 0.7 mg/dL (0.6-1.4); GLOM FILT RATE Estimated 87.2 mL/min (>60); POTASSIUM 4.5 mmol/L (3.5-5.1)
[2016-09-17 15:56] LABS: BODY FLUID APPEARANCE BLOODY; BODY FLUID SOURCE BRONCHIAL LAVAGE
[2016-09-18 07:49] LABS: BUN/CREATININE RATIO 27.14; CALCIUM SERUM 9.2 mg/dL (8.4-10.2); CREATININE SERUM 0.7 mg/dL (0.6-1.4); GLOM FILT RATE Estimated 87.2 mL/min (>60); POTASSIUM 4.5 mmol/L (3.5-5.1)
[2016-09-19 06:03] LABS: HEMATOCRIT 36.7 % (35.0-45.0); HEMOGLOBIN 11.4 gm/dL (12.0-16.0); MEAN CELL VOLUME 88.7 FL (83-96); MEAN CORPUSCULAR HEMOGLOBIN 27.6 PG (28-34); MEAN CORPUSCULAR HGB CONC 31.1 g/dL (30-36); MEAN PLATELET VOLUME 7.1 FL (6.5-11.5); RED BLOOD COUNT 4.14 X10e (3.90-5.30); RED CELL DISTRIBUTION WIDTH 14.8 % (11.0-15.5); WHITE BLOOD COUNT 25.5 X10e3 (4.0-10.5)
[2016-09-19 09:47] LABS: CALCIUM SERUM 9.7 mg/dL (8.4-10.2); CREATININE SERUM 0.7 mg/dL (0.6-1.4); GLOM FILT RATE Estimated 87.2 mL/min (>60); POTASSIUM 4.1 mmol/L (3.5-5.1)
[2016-09-20 06:16] LABS: BASOPHIL# 0.1 X10e3 (0-0.3); BASOPHIL% 0.3 % (0-2.5); DIFF IND YES; EOSINOPHIL# 0.2 X10e3 (0-0.7); EOSINOPHIL% 0.8 % (0.0-7.0); HEMATOCRIT 38.9 % (35.0-45.0); HEMOGLOBIN 12.3 gm/dL (12.0-16.0); LYMPHOCYTE# 2.9 X10e3 (1.0-3.5); MEAN CELL VOLUME 87.6 FL (83-96); MEAN CORPUSCULAR HEMOGLOBIN 27.8 PG (28-34); MEAN CORPUSCULAR HGB CONC 31.7 g/dL (30-36); MEAN PLATELET VOLUME 6.8 FL (6.5-11.5); MONOCYTE# 2.4 X10e3 (0-1.0); MONOCYTE% 9.1 % (3.0-12.0); NEUTROPHIL# 20.5 X10e3 (1.5-7.1); NEUTROPHIL% 78.8 % (40-75); PLATELET COUNT 490 X10e3 (140-420); RED BLOOD COUNT 4.44 X10e (3.90-5.30)
[2016-09-20 07:19] LABS: PLATELET ESTIMATE INCREASED (NORMAL)
[2016-09-20 07:20] LABS: BUN/CREATININE RATIO 47.5; CALCIUM SERUM 9.7 mg/dL (8.4-10.2); CREATININE SERUM 0.4 mg/dL (0.6-1.4); GLOM FILT RATE Estimated 104.8 mL/min (>60)
[2016-09-21 05:36] LABS: HEMATOCRIT 42.5 % (35.0-45.0); HEMOGLOBIN 13.4 gm/dL (12.0-16.0); MEAN CELL VOLUME 88.5 FL (83-96); MEAN CORPUSCULAR HGB CONC 31.6 g/dL (30-36); MEAN PLATELET VOLUME 7.2 FL (6.5-11.5); RED BLOOD COUNT 4.8 X10e (3.90-5.30); RED CELL DISTRIBUTION WIDTH 15.3 % (11.0-15.5); WHITE BLOOD COUNT 22.8 X10e3 (4.0-10.5)
[2016-09-21 06:19] LABS: BUN/CREATININE RATIO 38.33; CALCIUM SERUM 10.1 mg/dL (8.4-10.2); CREATININE SERUM 0.6 mg/dL (0.6-1.4); GLOM FILT RATE Estimated 91.7 mL/min (>60); POTASSIUM 5.4 mmol/L (3.5-5.1)
[2016-09-22 05:30] LABS: HEMATOCRIT 39.9 % (35.0-45.0); HEMOGLOBIN 12.7 gm/dL (12.0-16.0); MEAN CELL VOLUME 87.9 FL (83-96); MEAN CORPUSCULAR HEMOGLOBIN 27.9 PG (28-34); MEAN CORPUSCULAR HGB CONC 31.7 g/dL (30-36); RED BLOOD COUNT 4.54 X10e (3.90-5.30); RED CELL DISTRIBUTION WIDTH 15.2 % (11.0-15.5); WHITE BLOOD COUNT 20.1 X10e3 (4.0-10.5)
[2016-09-22 06:06] LABS: BUN/CREATININE RATIO 32.85; CALCIUM SERUM 9.8 mg/dL (8.4-10.2); CREATININE SERUM 0.7 mg/dL (0.6-1.4); GLOM FILT RATE Estimated 87.2 mL/min (>60); POTASSIUM 4.3 mmol/L (3.5-5.1)
== END 2016-09-22 16:26 | DRG 166 ==
LOC: CED 08:09 → CFTX 08:09 → CED 08:47 → CEDOF 13:49 → CED 14:07 → C3A PCU 21:09 → CEDOF 21:09 → C2A 09-19 07:45
PROVIDERS: Emergency Medicine; Hospitalist; Internal Medicine Pulmonary Disease; Physician Assistant Medical
PROC: B32TYZZ Computerized Tomography (CT Scan) of Left Pulmonary Artery using Other Contrast (ICD-10-PCS; 2016-09-16)
PROC: B32SYZZ Computerized Tomography (CT Scan) of Right Pulmonary Artery using Other Contrast (ICD-10-PCS; 2016-09-16)
PROC: 0BC48ZZ Extirpation of Matter from Right Upper Lobe Bronchus, Via Natural or Artificial Opening Endoscopic (ICD-10-PCS; 2016-09-17)
PROC: 0BC58ZZ Extirpation of Matter from Right Middle Lobe Bronchus, Via Natural or Artificial Opening Endoscopic (ICD-10-PCS; 2016-09-17)
PROC: 0B9C8ZX Drainage of Right Upper Lung Lobe, Via Natural or Artificial Opening Endoscopic, Diagnostic (ICD-10-PCS; 2016-09-17 09:00)
PROC: 0BBC8ZX Excision of Right Upper Lung Lobe, Via Natural or Artificial Opening Endoscopic, Diagnostic (ICD-10-PCS; 2016-09-17 09:00)
PROC: 0HQ1XZZ Repair Face Skin, External Approach (ICD-10-PCS; principal; 2016-09-19)
DX: C34.11 Malignant neoplasm of upper lobe, right bronchus or lung (principal); J96.01 Acute respiratory failure with hypoxia; J18.9 Pneumonia, unspecified organism; S32.029A Unspecified fracture of second lumbar vertebra, initial encounter for closed fracture; E11.65 Type 2 diabetes mellitus with hyperglycemia; J44.1 Chronic obstructive pulmonary disease with (acute) exacerbation; W06.XXXA Fall from bed, initial encounter; Y92.013 Bedroom of single-family (private) house as the place of occurrence of the external cause; S01.81XA Laceration without foreign body of other part of head, initial encounter; Z79.4 Long term (current) use of insulin; Z79.52 Long term (current) use of systemic steroids; F17.200 Nicotine dependence, unspecified, uncomplicated; Z90.710 Acquired absence of both cervix and uterus; J20.9 Acute bronchitis, unspecified
CPT/HCPCS: 36415; 70150; 70460; 71020; 71275; 72100; 72131; 73030; 73130; 74177; 76140; 78306; 80048; 80076; 80202; 81003; 82553; 82947; 83036; 83605; 84132; 84443; 84484; 85025; 85027; 87040; 87070; 87102; 87106; 87116; 87205; 87206; 87252; 87254; 87278; 88108; 88305; 88312; 89051; 93005; 97116; 97163; 97167; 97535; 99285; A9503; G8978-GP; G8979-GP; G8987-GO; G8988-GO; J0171; J0456; J0696; J1815; J1885; J2250; J2543; J2920; J3010; J3370; Q9967

== ENCOUNTER 2016-10-14 15:44 | Inpatient (IN) | payer MEDICARE ==
[~2016-10-14] VITALS: Ht 163.8 cm; Wt 5.7 kg
--- NOTE | ~2016-10-14 | DS ---
Unit #: [id number] #: [id number] Patient: TIMBO ARMENTA [id number] [address] [address] [id number] I MR#: [id number] NAME: TIMBO ARMENTA ROOM: 216 Age: 70 Sex: F Admission Date: 10/15/2016 : 1945 Discharge Date: 10/19/2016 Attending Physician: Rand Kolb M.D. Primary Care Physician: Castillo Soares M.D. DISCHARGE SUMMARY FINAL DIAGNOSES 1. Poor performance status. 2. Failure to thrive. 3. Non-small cell lung cancer stage III. 4. Intractable pain. 5. Hyponatremia, which is resolved. 6. Diabetes mellitus type 2. 7. History of recent postobstructive pneumonia and acute respiratory failure. DIAGNOSTIC STUDIES DISCHARGE LABS: Glucose 119. BMP shows sodium 135, potassium 4.2, chloride 99, BUN 13, creatinine 0.4, calcium 9.5. CBC shows WBC 17.3, hemoglobin 10.4, hematocrit 32.1, platelet count 391. Urine culture was 20,000 colonies mixed growth. Blood culture during hospitalization was no growth. TSH 1.29. Lactic acid on admission was 1.1. Troponin is less than 0.05. SIGNIFICANT RADIOLOGIC STUDIES DONE DURING HOSPITALIZATION: CTA of the chest - No evidence of pulmonary embolism. Findings are consistent with known diagnosis of lung cancer with interval worsening in the appearance of the chest. There is a large mass centered in the right upper lobe, now about 12 centimeter in diameter, larger on comparison. Severe underlying emphysema. No pneumothorax or significant pleural effusion. CONSULTATIONS DURING HOSPITALIZATION 1. Dr. Douglas Junior from oncology service. 2. Dr. Morgan, admitting physician. HOSPITAL COURSE The patient was admitted on October 15, 2016 to [facility] by my colleague, Dr. Morgan with right-sided chest pain. Chest x-ray showed right upper lobe large mass with extension into the soft tissue and some bony destruction in the rib cage. CTA of the chest was done, and pulmonary embolism was ruled out. It looks like her lung cancer has worsened since the last visit. Dr. Junior was consulted during hospitalization. As per Dr. Sandi, the patient has a very little support at home of family to transfer her back and forth for treatments. The patient also has failure to thrive. The patient was seen in the office as outpatient by Dr. Junior, and PET scan was planned. The patient came to the ER in the meantime with generalized weakness and found to be hyponatremic. The patient is being discharged to rehab and then she needs to see Dr. Juniro as an outpatient in 2 weeks or so. The patient does have a poor performance status. The patient's pain was managed with p.o. pain Unit #: [id number] #: [id number] Patient: TIMBO ARMENTA medications. The patient is being discharged to rehab facility on the following medications. DISCHARGE MEDICATIONS 1. Tylenol 650 q.6 p.r.n. 2. Mag oxide 400 mg b.i.d. 3. Neurontin 300 mg b.i.d. 4. Zonegran 100 mg b.i.d. 5. Glucophage 500 mg t.i.d. 6. Lopressor 50 mg daily. 7. Nozinan 25 mg daily. 8. NovoLog low-dose sliding scale. 9. Lortab 7.5/325 mg 1 tablet q.4 p.r.n. PHYSICAL EXAMINATION VITAL SIGNS ON DISCHARGE: Blood pressure is 99/78, respiratory rate 20, pulse 73, temperature 98.7, oxygen saturation 98%. HEENT: Head is normocephalic. RESPIRATORY: Chest has decreased air entry. CVS: Regular rhythm. DISCHARGE INSTRUCTIONS 1. Patient is being discharged to rehab facility. 2. PT/OT at rehab. 3. CBC, BMP to be done in 3-4 days. 4. Follow up with Dr. Junior as outpatient in 2 weeks or so. 1. Dictated by... Kathrin Patel TD: 10/19/2016 13:54 JOB #: [id number] DISCHARGE SUMMARY Page 1 of 1 X Rand Kolb MD DISCHARGE SUMMARY
--- NOTE | ~2016-10-14 | CR72 ---
[facility] A Service of [facility] & [facility] RADIOLOGY TEXT RESULTS PATIENT: TIMBO ARMENTA LOCATION: [facility] : 44 UNIT #: [id number] AGE: [address]: Rand Kolb MD SEX: F ORDER DR: [id number] [facility] [address]. [place], [place] [address] [id number] I MR#: [id number] Acc #: [id number] NAME: TIMBO ARMENTA : 1945 SEX: F STUDY DATE/TIME: 10/14/2016 17:45 UNIT: A ROOM: [facility] STUDY DESCRIPTION: CR Chest Single View Portable Attending Physician: Rand Kolb M.D. Referring Physician: Angel Luke M.D. Ordering Physician: John Seaman M.D. Primary Care Physician: Castillo Soares M.D. MEDICAL IMAGING REPORT This report is preliminary unless electronic signature is present EXAM Portable chest x-ray, 10/14/2016. HISTORY Cough. CHF, diabetes, weakness, short of air. Lung cancer. TECHNIQUE AP radiograph of the chest is presented. COMPARISON Comparison to chest radiograph 09/16/[address] 09/16/2016. FINDINGS The large mass involving the right upper lobe with extension into the soft tissues of the chest wall is grossly unchanged. There is marked destruction of the right second rib and some destruction of right first rib. Rib findings appear more pronounced than in August. This is felt to represent the site of the patient's known malignancy. I see no new mass lesions. The heart is normal in size. The lungs are moderately well inflated. There is underlying emphysema. There is new borderline vascular prominence and mild linear interstitial prominence raising concern for mild vascular congestion and mild interstitial edema. No new areas of dense airspace disease. No pleural effusion or pneumothorax. Patient scheduled for CT chest according to records in DR PACS system. Please see that study for additional assessment. Dictated by... Bunny Michelle M.D. THIS IS AN ELECTRONICALLY VERIFIED REPORT [facility] A Service of [facility] & [facility] RADIOLOGY TEXT RESULTS PATIENT: TIMBO ARMENTA LOCATION: [facility] 216-01 : 44 UNIT #: [id number] AGE: [address]: Rand Kolb MD SEX: F ORDER DR: Bunny Michelle M.D. at 10/16/2016 2:46 PM Maite TD: 10/15/2016 00:23 JOB #: [id number] MEDICAL IMAGING REPORT Page 1 of 1 COPY
--- NOTE | ~2016-10-14 | CO ---
Unit #: [id number] #: [id number] Patient: TIMBO ARMENTA [id number] [address] [place], [place] [address] [id number] I MR#: [id number] NAME: TIMBO ARMENTA ROOM: 216 Age: 70 Sex: F Admission Date: 10/15/2016 : 1945 Attending Physician: Rand Kolb M.D. Primary Care Physician: Castillo Soares M.D. Consultation Date: 10/16/2016 CONSULTATION REPORT REASON FOR EVALUATION Lung CA, please evaluate. HISTORY OF PRESENT ILLNESS A 70-year-old lady whom we saw for the first time about three or four weeks ago has a history of stage III lung cancer, nonsmall cell, and was sent to the rehab center as she has very little support at home or with family to transfer her back and forth for scanning, radiation, and chemotherapy, presents now with poor performance status, hyponatremia, and leukocytosis, all related to her nonsmall cell lung cancer, but mainly failure to thrive and still does not have any outpatient way of getting for radiation or chemotherapy. She has nonsmall cell lung CA with a large mass with involvement of the ribs and the chest wall, right-sided, that was thoroughly evaluated three weeks ago. She came to our office where we were planning to do a PET scan, followed by chemoradiotherapy. She ended up in the hospital with generalized weakness and was found to be hyponatremic, and we were requested to evaluate. PAST MEDICAL HISTORY Remarkable for diabetes and this nonsmall cell lung CA, otherwise, some minor problems plus compression fracture of L2. Please see the chart for further details. FAMILY HISTORY Negative for cluster of cancers. SOCIAL HISTORY Reformed smoker. No alcohol usage. Currently in a rehab center for the next 10 days. CHRONIC MEDICATIONS 1. Pepcid. 2. Prednisone. 3. Sliding scale insulin. 4. Lidoderm. 5. Lovenox. 6. Percocet. 7. Tylenol. ALLERGIES Erythromycin, Benadryl, albuterol, latex, and phenylephrine. REVIEW OF SYSTEMS Mainly remarkable for failure to thrive, ill health, chronic pain mainly Unit #: [id number] #: [id number] Patient: GEOVANY,JERRILYNN in the back while no pain while she is laying down still, appetite is poor, and performance is decreasing steadily and currently is at around 50-60 Karnofsky. Otherwise, on review of systems, six or eight systems were within normal limits. PHYSICAL EXAMINATION GENERAL: Looks older than stated age, laying on the side. Laying on the back causes pain in her spine. LYMPHATICS: No palpable nodes. LUNGS: Poor air entry bilaterally, mild expiratory wheeze, and a few crackles. CARDIOVASCULAR: Distant S1 and S2. ABDOMEN: No palpable liver or spleen. CENTRAL NERVOUS SYSTEM: Grossly intact. Upper and lower extremity musculature there is atrophy, and on the lumbar spine, there is mild tenderness. PELVIC/BREASTS: Not performed. DIAGNOSTIC STUDIES LABORATORY: Chemistries: Glucose 122, BUN 14, creatinine 0.5, sodium 137, potassium 3.8, chloride 104, and CO2 of 26. Hemoglobin 9.7, hematocrit 29.3, white count 18.2, and platelets 380,000. IMAGING: CT of the chest was reviewed and shows progressive disease with the mass getting bigger in size and further rib involvement. IMPRESSION This 70-year-old lady with stage 3 nonsmall cell lung cancer has very poor outpatient support, so she is going to the rehab center which does not allow daily trips for radiation and weekly trips for chemotherapy. So at this point, I am going to have a fili and open discussion with patient and the daughter regarding options available and consider supportive care only [facility], but I doubt that she is ready for [facility] yet, and in case they decide they can arrange for her to come and be treated as an outpatient, then we shall arrange PET scan, followed by radiation and chemotherapy combined. Dictated by... Kathrin Conrad/simin TD: 10/16/2016 15:47 JOB #: [id number] CONSULTATION REPORT Page 1 of 1 X Douglas Junior MD CONSULTATION REPORT
--- NOTE | ~2016-10-14 | CT16 ---
[facility] A Service of [facility] & [facility] RADIOLOGY TEXT RESULTS PATIENT: TIMBO ARMENTA LOCATION: A 216-01 : 44 UNIT #: [id number] AGE: [address]: Rand Kolb MD SEX: F ORDER DR: [id number] [facility] [address] [place], [place] [address] [id number] MR#: [id number] Acc #: [id number] NAME: TIMBO ARMENTA : 1945 SEX: F STUDY DATE/TIME: 10/14/2016 18:52 UNIT: [facility] ROOM: STUDY DESCRIPTION: CT Angio Chest for PE Attending Physician: Bethany Mendoza M.D. Ordering Physician: Ed Doctor [id number] [facility] Primary Care Physician: Castillo Soares M.D. MEDICAL IMAGING REPORT This report is preliminary unless electronic signature is present EXAM CT angiogram chest PE protocol HISTORY Shortness of air, weakness, diarrhea, right shoulder pain right-sided chest pain for 3 days history of lung cancer COMMENT CT of the chest performed in the axial plane during the intravenous administration 100 mL of Isovue-370. This is followed by 3-D coronal MIP reconstructed images for the purpose of CT pulmonary angiography. There is a previous CT chest from 09/16/2016. This CT exam was performed with one or more of the following radiation dose reduction techniques: automatic control, adjustment of mA and/or kV according to patient size, and iterative reconstruction. There is a large necrotic appearing mass lesion centered in the right upper hemithorax with extension through the chest wall and associated right upper rib destruction. It is larger than the 09/16/2016 study and consistent with known lung cancer with some component of interval growth. It is likely that there is central necrosis. On the prior study there was an air-fluid level within the mass. On the current study air is no longer seen. There is some adjacent peripheral atelectasis which is postobstructive in appearance. There is some interval increase in extension of the mass through the upper right chest wall and increase in destruction of right upper ribs. This involvement would account for the right shoulder pain. The mass is increasing in size since 09/16/2016 with current measurements closer to 12.1 x 11.7 x 10.4 cm as compared to 11.8 x 9.5 x 11.2 cm. Again there is adenopathy in the right hilum and mediastinum. The precarinal node currently measures about 2.8 x 1.5 cm compared to 2.4 x 1.5 cm previously and is also mildly increased in size. The postobstructive airspace disease in the more posterior right upper STS. [facility] A Service of [facility] RADIOLOGY TEXT RESULTS PATIENT: TIMBO ARMENTA LOCATION: [facility] 216-01 : 44 UNIT #: [id number] AGE: [address]: Rand Kolb MD SEX: F ORDER DR: lobe is increased since previous. No definite pulmonary embolism is seen. There is again extensive emphysema. There is considerable increase in a peripheral soft tissue nodule in the left upper lobe posteriorly. Previously only a few mm now about 1.1 cm dimension. This is likely a growing metastasis. There is atherosclerotic disease in the thoracic aorta but there is no evidence for thoracic aortic dissection. There is no pleural effusion. There is no pneumothorax. There are coronary artery calcifications but there is no pericardial effusion and there is no evidence for right heart strain. It is what is likely an osteoporotic compression fracture again noted in the upper lumbar spine. IMPRESSION 1. No evidence for pulmonary embolism. 2. Findings are consistent with known diagnosis of lung cancer with interval worsening in the appearance of the chest. There is a large mass centered in the right upper lobe now about 12 centimeter in diameter larger on comparison study of September 16, 2016 with increasing growth through the right chest wall increasing destruction of right upper ribs and increasing adjacent postobstructive atelectasis. Additionally there is likely metastasis in the left upper lobe considerably increased in size from the prior study now about 1.1 cm in dimension in the left upper lobe posteriorly. There is also some increase in size of measured lymph nodes. 3. Severe underlying emphysema. 4. No pneumothorax or significant pleural effusion. No pericardial effusion or thoracic aortic dissection. STAT * RESULT Dictated by... Shira Fountain M.D. THIS IS AN ELECTRONICALLY VERIFIED REPORT Shira Fountain M.D. at 10/14/2016 11:29 PM PRABHJOT/kassie TD: 10/14/2016 19:36 JOB #: [id number] MEDICAL IMAGING REPORT Page 1 of 1 COPY
--- NOTE | ~2016-10-14 | EKG ---
PATIENT: TIMBO ARMENTA UNIT #: [id number] Ventricular Rate: 84 BPM Atrial Rate: 84 BPM P-R Interval: 172 ms QRS Duration: 80 ms Q-T Interval: 352 ms QTC Calculation(Bezet): 415 ms P [place]: 69 degrees Calculated R [place]: 63 degrees Calculated T [place]: 68 degrees Diagnosis Line: Normal sinus rhythm with sinus arrhythmia Diagnosis Line: Possible Left atrial enlargement Diagnosis Line: Borderline ECG Diagnosis Line: When compared with ECG of 16-SEP-2016 08:45, Diagnosis Line: No significant change was found Diagnosis Line: Confirmed by SARKIS BRODY MD ([id number]) on 10/14/2016 Diagnosis Line: 6:24:23 PM INTERPRETING MD: MARY GRACE SAL
--- NOTE | ~2016-10-14 | HP ---
Unit #: [id number] #: [id number] Patient: TIMBO BRITO [id number] [address] [place], [place] [address] [id number] MR#: [id number] NAME: TIMBO BRITO ROOM: 216 Age: 70 Sex: F Admission Date: 10/15/2016 : 1945 Attending Physician: Rand Kolb M.D. Primary Care Physician: Castillo Soares M.D. HISTORY AND PHYSICAL ADMISSION DIAGNOSES 1. Non-small cell lung cancer. 2. 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 3. Leukocytosis, most likely chronic secondary to chronic steroids. 4. History of recent postobstructive pneumonia and acute respiratory failure. 5. Diabetes type 2. HISTORY OF PRESENT ILLNESS Ms. Timbo Brito is a 70-year-old female well known to us since August of this year when she was admitted and was subsequently diagnosed with the postobstructive pneumonia secondary to a right sided non-small cell lung cancer. She comes in with the complaints of the right sided chest pain. The initial evaluation with a chest x-ray showed right upper lobe large mass with extension into the soft tissue and some bony destructions in the ribcage. Also, CT angio was done which ruled out pulmonary embolus and confirmed the previous diagnosis of internal worsening lung cancer with underlying emphysema along with the postobstructive atelectasis and likely mets to the left upper lobe. The patient was admitted and started treatment with the supportive care and symptomatic management. She currently denies any other symptoms. Denies any fever, chills, denies any headache, dizziness. Denies any cough or hemoptysis. Denies any syncope or presyncope, nausea, vomiting, diarrhea or abdominal pain. So, total review of systems on this patient is basically negative except as above. PAST MEDICAL HISTORY As above in HPI. PAST SURGICAL HISTORY Significant for: 1. Hysterectomy. 2. Rectovaginal repair. 3. Recent therapeutic and diagnostic bronchoscopy. MEDICATIONS Current medications on this female include: 1. Prednisone 20 mg daily. 2. Sliding scale insulin. 3. Lidoderm patch. 4. Pepcid. 5. Nystatin powder. 6. Aspirin. 7. Lovenox. Unit #: [id number] #: [id number] Patient: TIMBO BRITO 8. Refresh eyedrops. 9. Percocet. 10. Tylenol. 11. IV fluids with normal saline. ALLERGIES Allergic to albuterol, erythromycin, Benadryl, latex and phenylephrine. SOCIAL HISTORY No current history of tobacco, alcohol or illicit drugs. FAMILY HISTORY Unremarkable. PHYSICAL EXAMINATION GENERAL: The patient is an ill appearing 70-year-old female, otherwise in no acute distress. VITAL SIGNS: BP 105/50, heart rate 64, respirations 20, temperature 97.6. HEENT: Head is atraumatic. Pupils equal, round and reactive to light. Oropharynx clean. NECK: Supple. No masses, no JVD, no bruits. CHEST: Diminished bilaterally. CARDIOVASCULAR SYSTEM: S1, S2. No murmurs. ABDOMEN: Soft, nontender, nondistended. EXTREMITIES: Lower extremities without any cyanosis, clubbing or edema. NEUROLOGICAL: Patient without any focal neuro deficits, answering questions appropriately. DIAGNOSTIC STUDIES IMAGING: Chest x-ray and CT as above. LABORATORY: Chemistry significant for sodium of 131, blood glucose 221, white count 29.4, H and H 11 and 33. ASSESSMENT AND PLAN 1. Lung cancer, non-small cell. Looks like which is worsening. Most likely patient is going to be advised for palliative care and hospice. Will ask Dr. Junior, who is her primary oncologist, for consult. 2. 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 Monitor chemistry closely, currently on fluid restrictions. 3. Leukocytosis. Doubt any type of pneumonia. Imaging status as above. 4. Afebrile. This most likely caused secondary to chronic steroid use. Patient was on prednisone at home. 5. History of recent postobstructive pneumonia and acute respiratory failure. 6. Diabetes type 2. 7. GI and DVT prophylaxis with Pepcid and Lovenox. Dictated by Kathrin Griffiths/adam TD: 10/16/2016 06:10 Unit #: [id number] #: [id number] Patient: TIMBO BRITO JOB #: [id number] HISTORY AND PHYSICAL Page 1 of 1 X Jack Morgan MD HISTORY AND PHYSICAL
[~2016-10-14 15:44] MED LIST changes: +ARTIFICIAL TEAR15 M9 OU; +ATROVENT 0.03%30 ML; +GLUCOTROL XL5 M1 PO; +HYDROCODON-ACE1 EAC9 PO; +LASIX20 MG PO; +LIPITOR20 MG PO; +OMEPRAZOLE20 M2 PO; +PATIENT'S PHARMACY; +PROAIR RESPICL90 MCG INH; +VITAMIN D250000 UNIT PO
[2016-10-14 16:32] LABS: BASOPHIL# 0.1 X10e3 (0-0.3); BASOPHIL% 0.4 % (0-2.5); EOSINOPHIL# 0.1 X10e3 (0-0.7); EOSINOPHIL% 0.5 % (0.0-7.0); LYMPHOCYTE# 2.3 X10e3 (1.0-3.5); LYMPHOCYTE% 7.9 % (17.0-45.0); MEAN CELL VOLUME 87.4 FL (83-96); MEAN CORPUSCULAR HGB CONC 33.2 g/dL (30-36); MEAN PLATELET VOLUME 6.8 FL (6.5-11.5); MONOCYTE# 1.6 X10e3 (0-1.0); MONOCYTE% 5.5 % (3.0-12.0); NEUTROPHIL# 25.2 X10e3 (1.5-7.1); NEUTROPHIL% 85.7 % (40-75); PLATELET COUNT 388 X10e3 (140-420); RED BLOOD COUNT 3.78 X10e (3.90-5.30); RED CELL DISTRIBUTION WIDTH 15.9 % (11.0-15.5); WHITE BLOOD COUNT 29.4 X10e3 (4.0-10.5)
[2016-10-14 16:33] LABS: DIFF IND YES
[2016-10-14 16:58] LABS: ALBUMIN SERUM 2.6 g/dL (3.5-5.0); BILIRUBIN,TOTAL 0.6 mg/dL (0.2-2.0); BUN/CREATININE RATIO 26.25; CALCIUM SERUM 9.8 mg/dL (8.4-10.2); CREATININE SERUM 0.8 mg/dL (0.6-1.4); GLOM FILT RATE Estimated 74.2 mL/min (>60); PLATELET ESTIMATE NORMAL (NORMAL); RBC NORMAL YES
[2016-10-14] MEDS ORDERED: LIPITOR20 MG PO (17:46)
[2016-10-14] MEDS ORDERED: DOCUSATE SODIU100 MG PO (17:46)
[2016-10-14] MEDS ORDERED: ASPIRIN81 M2 PO (17:46)
[2016-10-14] MEDS ORDERED: IBUPROFEN PO (17:47)
[2016-10-14] MEDS ORDERED: GLUCOTROL PO (17:47)
[2016-10-14] MEDS ORDERED: LASIX PO (17:47)
[2016-10-14] MEDS ORDERED: VITAMIN D250000 UNIT PO (17:47)
[2016-10-14] MEDS ORDERED: METFORMIN HCL1000 M2 PO (17:48)
[2016-10-14] MEDS ORDERED: MIRALAX17 GM PO (17:48)
[2016-10-14] MEDS ORDERED: LIDODERM1 EACH TOP (17:48)
[2016-10-14] MEDS ORDERED: PRILOSEC PO (17:49)
[2016-10-14] MEDS ORDERED: OXYCODONE-ACET1 EAC1 PO (17:49)
[2016-10-14] MEDS ORDERED: NYSTATIN1 EAC2 TOP (17:49)
[2016-10-14 17:50] LABS: POC - CKMB <1.0 ng/mL (0.0-7.9); POC - TROPONIN <0.05 ng/mL (<=0.05)
[2016-10-14] MEDS ORDERED: DELTASONE20 MG PO (17:50)
[2016-10-14] MEDS ORDERED: ARTIFICIAL TEAR15 M9 OU (17:50)
[2016-10-14 18:18] LABS: POC - CKMB 1.4 ng/mL (0.0-7.9); POC - TROPONIN <0.05 ng/mL (<=0.05)
[2016-10-14 18:22] LABS: INR 1.2; PROTHROMBIN TIME (PATIENT) 12.6 SECONDS (10.0-11.7)
[2016-10-14 18:29] LABS: ALBUMIN SERUM 2.5 g/dL (3.5-5.0); BILIRUBIN, DIRECT 0.3 mg/dL (0.0-0.2); BILIRUBIN,INDIRECT 0.4 mg/dL (0.0-0.9); BILIRUBIN,TOTAL 0.7 mg/dL (0.2-2.0); PROTEIN TOTAL SERUM 6.3 g/dL (6.0-8.3)
[2016-10-14 19:43] LABS: URINE SOURCE CLEAN CATCH
[2016-10-14 19:55] LABS: URINE APPEARANCE CLEAR; URINE BILIRUBIN NEG (NEG); URINE BLOOD NEG (NEG); URINE COLOR YELLOW; URINE GLUCOSE NEG (NEG); URINE KETONE NEG (NEG); URINE LEUKOCYTE ESTERASE TRACE (NEG); URINE NITRATE NEG (NEG); URINE PROTEIN NEG (NEG); URINE SPECIFIC GRAVITY 1.016 (1.003-1.035)
[2016-10-14 19:58] LABS: CULTURE INDICATED? YES; U HYALINE CASTS AUWI 0-2 /[LPF]; URINE BACTERIA AUWI NEG (NEGATIVE); URINE SQUAMOUS EPITHELIAL CELL OCC /[HPF]
[2016-10-14 21:00] LABS: SODIUM URINE RANDOM 12 mmol/L
[2016-10-14 21:04] LABS: OSMOLALITY,URINE 243 mOsmo/kg (250-900)
[2016-10-15 06:08] LABS: CALCIUM SERUM 9.3 mg/dL (8.4-10.2); CREATININE SERUM 0.5 mg/dL (0.6-1.4); GLOM FILT RATE Estimated 97.4 mL/min (>60); POTASSIUM 3.6 mmol/L (3.5-5.1)
[2016-10-16 06:21] LABS: BASOPHIL# 0.1 X10e3 (0-0.3); BASOPHIL% 0.4 % (0-2.5); EOSINOPHIL# 0.4 X10e3 (0-0.7); HEMATOCRIT 29.3 % (35.0-45.0); HEMOGLOBIN 9.7 gm/dL (12.0-16.0); LYMPHOCYTE# 2.4 X10e3 (1.0-3.5); MEAN CELL VOLUME 87.7 FL (83-96); MEAN CORPUSCULAR HEMOGLOBIN 29.1 PG (28-34); MEAN CORPUSCULAR HGB CONC 33.1 g/dL (30-36); MEAN PLATELET VOLUME 6.9 FL (6.5-11.5); MONOCYTE# 1.3 X10e3 (0-1.0); MONOCYTE% 7.3 % (3.0-12.0); NEUTROPHIL# 14.1 X10e3 (1.5-7.1); NEUTROPHIL% 77.3 % (40-75); PLATELET COUNT 380 X10e3 (140-420); RED BLOOD COUNT 3.34 X10e (3.90-5.30); RED CELL DISTRIBUTION WIDTH 15.5 % (11.0-15.5); WHITE BLOOD COUNT 18.2 X10e3 (4.0-10.5)
[2016-10-16 06:22] LABS: DIFF IND NO
[2016-10-16 07:44] LABS: CALCIUM SERUM 9.2 mg/dL (8.4-10.2); CREATININE SERUM 0.5 mg/dL (0.6-1.4); GLOM FILT RATE Estimated 97.4 mL/min (>60); POTASSIUM 3.8 mmol/L (3.5-5.1)
[2016-10-17 12:17] LABS: BASOPHIL# 0.1 X10e3 (0-0.3); BASOPHIL% 0.5 % (0-2.5); EOSINOPHIL# 0.2 X10e3 (0-0.7); EOSINOPHIL% 1.3 % (0.0-7.0); HEMATOCRIT 32.1 % (35.0-45.0); HEMOGLOBIN 10.4 gm/dL (12.0-16.0); LYMPHOCYTE# 1.7 X10e3 (1.0-3.5); MEAN CELL VOLUME 87.8 FL (83-96); MEAN CORPUSCULAR HEMOGLOBIN 28.5 PG (28-34); MEAN CORPUSCULAR HGB CONC 32.5 g/dL (30-36); MEAN PLATELET VOLUME 6.8 FL (6.5-11.5); MONOCYTE# 1.5 X10e3 (0-1.0); MONOCYTE% 8.6 % (3.0-12.0); NEUTROPHIL# 13.8 X10e3 (1.5-7.1); NEUTROPHIL% 79.6 % (40-75); PLATELET COUNT 391 X10e3 (140-420); RED BLOOD COUNT 3.66 X10e (3.90-5.30); RED CELL DISTRIBUTION WIDTH 15.1 % (11.0-15.5); WHITE BLOOD COUNT 17.3 X10e3 (4.0-10.5)
[2016-10-17 12:19] LABS: DIFF IND NO
[2016-10-17 12:55] LABS: CALCIUM SERUM 9.3 mg/dL (8.4-10.2); CREATININE SERUM 0.5 mg/dL (0.6-1.4); GLOM FILT RATE Estimated 97.4 mL/min (>60); POTASSIUM 4.2 mmol/L (3.5-5.1)
[2016-10-18 07:48] LABS: BUN/CREATININE RATIO 32.5; CALCIUM SERUM 9.5 mg/dL (8.4-10.2); CREATININE SERUM 0.4 mg/dL (0.6-1.4); GLOM FILT RATE Estimated 104.8 mL/min (>60); POTASSIUM 4.2 mmol/L (3.5-5.1)
== END 2016-10-19 17:18 | DRG 644 ==
LOC: CED 15:44 → C2A 20:30 → CED 20:30 → C2A 20:30 → CEDOF 20:30 → CED 20:48 → C2A 21:29 → CEDOF 21:29 → C2A 21:29 → CEDOF 10-15 11:35 → C2A 10-15 11:35
PROVIDERS: Emergency Medicine; Hospitalist; Internal Medicine; Physician Assistant Medical
PROC: B32TYZZ Computerized Tomography (CT Scan) of Left Pulmonary Artery using Other Contrast (ICD-10-PCS; principal; 2016-10-15)
PROC: B32SYZZ Computerized Tomography (CT Scan) of Right Pulmonary Artery using Other Contrast (ICD-10-PCS; 2016-10-15)
DX: E22.2 Syndrome of inappropriate secretion of antidiuretic hormone (principal); C34.11 Malignant neoplasm of upper lobe, right bronchus or lung; E11.9 Type 2 diabetes mellitus without complications; D72.829 Elevated white blood cell count, unspecified; R62.7 Adult failure to thrive; Z79.52 Long term (current) use of systemic steroids; Z90.710 Acquired absence of both cervix and uterus; Z79.4 Long term (current) use of insulin; Z79.82 Long term (current) use of aspirin; Z91.040 Latex allergy status; Z68.23 Body mass index [BMI] 23.0-23.9, adult
CPT/HCPCS: 36415; 71010; 71275; 80048; 80053; 80076; 81003; 82308; 82550; 82553; 82947; 83605; 83930; 83935; 84300; 84443; 84484; 85025; 85610; 87040; 87086; 93005; 94760; 96360; 97116; 97162; 97166; 97530; 97535; 99285; G8978-GP; G8979-GP; G8987-GO; G8988-GO; J1650; J1815; Q9967

== ENCOUNTER 2016-10-23 22:58 | Inpatient (IN) | payer MEDICARE ==
[~2016-10-23] VITALS: Ht 162.6 cm; Wt 61.2 kg
--- NOTE | ~2016-10-23 | CT71 ---
[facility] A Service of [facility] RADIOLOGY TEXT RESULTS PATIENT: TIMBO ARMENTA LOCATION: [facility] : 44 UNIT #: [id number] AGE: [address]: Nino Tanner MD SEX: F ORDER DR: [id number] [facility] [address]. [place], [place] [address] [id number] I MR#: [id number] Acc #: [id number] NAME: TIMBO ARMENTA : 1945 SEX: F STUDY DATE/TIME: 10/24/2016 2:02 UNIT: [address] ROOM: [facility] STUDY DESCRIPTION: CT Head Wo Contrast Attending Physician: Nino Tanner M.D. Ordering Physician: Cisco Moreno D.O. Primary Care Physician: Castillo Soares M.D. MEDICAL IMAGING REPORT This report is preliminary unless electronic signature is present EXAM CT head, noncontrast, 10/24/2016 HISTORY 70-year-old female in the ED with new onset headaches and confusion/mental status changes today. Respiratory distress and shortness of air. History of lung cancer. TECHNIQUE CT examination of the head was performed without IV contrast. This CT exam was performed with one or more of the following radiation dose reduction techniques: automatic exposure control, adjustment of mA and/or kV according to patient size, and iterative reconstruction. COMPARISON No comparison studies here. FINDINGS No definite acute intracranial abnormality is identified. Moderately severe diffuse patchy low-attenuation white matter changes are present, greatest in the frontal lobes. This is nonspecific but most likely related to chronic microvascular disease. Mild generalized cerebral cortical atrophy. Atheromatous calcification of the carotid siphons. No evidence of intracranial hemorrhage, mass, mass effect, acute cerebral edema, or hydrocephalus. No skull fracture. IMPRESSION 1. No acute intracranial abnormality. 2. Moderate diffuse chronic changes as noted above. [facility] A Service of [facility] RADIOLOGY TEXT RESULTS PATIENT: TIMBO ARMENTA LOCATION: [facility] : 44 UNIT #: [id number] AGE: [address]: Nino Tanner MD SEX: F ORDER DR: Dictated by... Manohar Moreno M.D. THIS IS AN ELECTRONICALLY VERIFIED REPORT Manohar Moreno M.D. at 10/27/2016 11:07 PM ALEJA/demi TD: 10/24/2016 13:48 JOB #: [id number] MEDICAL IMAGING REPORT Page 1 of 1 COPY
--- NOTE | ~2016-10-23 | CO ---
Unit #: [id number] #: [id number] Patient: TIMBO BRITO [id number] [address] [place], [place] [address] [id number] I MR#: [id number] NAME: TIMBO BRITO ROOM: 328 Age: 70 Sex: F Admission Date: 10/24/2016 : 1945 Attending Physician: Nino Tanner M.D. Primary Care Physician: Castillo Soares M.D. CONSULTATION REPORT DIAGNOSIS Stage IIIb squamous cell carcinoma, right upper lobe. CHIEF COMPLAINT Mild mental confusion and right chest pain. HISTORY OF PRESENT ILLNESS Ms. Brito is a 70-year-old female, who was previously seen in consultation September 19, 2016. At that time, patient was noted to have a massive lesion of the right upper lobe which biopsies demonstrated to be squamous cell carcinoma. She was in a great deal of pain and had pneumonia in addition to malignancy. Patient was treated with antibiotic therapy and was seen by myself as well as Dr. Junior. The patient was clearly not a surgical candidate due to performance status and the size of the mass. She had invasion of three rib levels from this massive lesion of the right upper lobe as well as enlarged hilar mediastinal lymph nodes. Her staging workup included a total body bone scan which was negative and CT scan of the brain with contrast which demonstrated no metastatic disease. Patient had had history of cellulitis and reflux. She was on insulin, Percocet, and nicotine patches. She had been a heavy smoking for many years. Patient was discharged shortly after her initial evaluation and plans at that time were for an outpatient PET CT scan with chemoradiotherapy to begin promptly. The patient has now gone approximately three weeks with no intervention. She did not appear for her PET CT image. As one might expect, she was re-admitted October 15 and at this time had hyponatremia likely secondary to SIADH. Patient also had postobstructive pneumonia, respiratory failure, diabetes, and other problems which had persisted. A repeat CT scan of the chest with PE protocol was obtained and no pulmonary embolus was identified. The mass had actually enlarged very slightly. I have been asked to re-evaluate Ms. Brito. RECOMMENDATIONS Unfortunately, Ms. Brito has issues with her home situation. She lives and cares for herself but clearly is not able to do that at this time. The issues are that if patient is referred to a [facility] facility then she will not be able to be transported for chemoradiotherapy as this simply will not be paid for. We will need to work with a financial planner to see if arrangements can be made for home health care which will sufficiently care for Ms. Brito and enable us to proceed with therapy. The options are aggressive therapy versus merely supportive care. Patient is likely not a [facility] candidate at this time, although any therapeutic intervention is likely to be palliative given the extent of her disease. I have discussed these issues as best as possible with Ms. Brito and will Unit #: [id number] #: [id number] Patient: RONALD BRITOMITUL discuss them further with Dr. Junior. PAST MEDICAL HISTORY 1. Postobstructive pneumonia. 2. Respiratory failure. 3. Type 2 diabetes. 4. Rectovaginal repair. 5. History of hysterectomy. 6. History of recent bronchoscopy. MEDICATIONS 1. Prednisone 20 mg daily. 2. Sliding scale insulin. 3. Lidoderm patch. 4. Pepcid. 5. Nystatin powder. 6. Aspirin. 7. Lovenox. 8. Eye drops. 9. Percocet for pain. ALLERGIES Patient reports drug allergy to albuterol, erythromycin, Benadryl, latex, and phenylephrine. SOCIAL HISTORY The patient has extensive smoking history. She does not drink. She does not use illicit drugs. FAMILY HISTORY Noncontributory. PHYSICAL EXAMINATION VITAL SIGNS: Currently temperature 97.2, pulse 70, respirations 17, BP 133/54. Height 5 foot 4 inches. Weight 135. BMI 22. HEENT: Pupils equal, round, and reactive to light and accommodation. Extraocular movements within normal limits. GENERAL: Patient is conversant but very mildly confused. She complains of dry mouth. She still has some discomfort in the right upper chest wall. Her appetite is only fair. ABDOMEN: Soft. EXTREMITIES: Without gross edema. Patient is thin and having lost a great deal of skeletal muscle mass. DIAGNOSTIC STUDIES LABORATORY: Glucose 112 currently, BUN 22, creatinine 0.7, calcium 9.6, sodium 141. Albumin very low at 2.4. Liver enzymes within normal limits with the exception of alkaline phosphatase elevated at 149. WBC 22, hemoglobin 10, hematocrit 31.2, platelet count 516,000. Approximately 30 minutes spent discussing case with Ms. Brito. Dictated by... Marcelino Kee M.D. Unit #: [id number] #: [id number] Patient: TIMBO BRITO J/ch TD: 10/26/2016 09:58 JOB #: [id number] CC: Kathrin Robledo M.D. Kusum Nigam, M.D. CONSULTATION REPORT Page 1 of 1 X Marcelino Kee MD X CONSULTATION REPORT
--- NOTE | ~2016-10-23 | DS ---
Unit #: [id number] #: [id number] Patient: TIMBO ARMENTA [id number] [address] [address] [id number] I MR#: [id number] NAME: TIMBO ARMENTA ROOM: 328 Age: 70 Sex: F Admission Date: 10/24/2016 : 1945 Discharge Date: Attending Physician: Nino Tanner M.D. Primary Care Physician: Castillo Soares M.D. DISCHARGE SUMMARY DATE OF TRANSFER TO REHAB 11/04/2016 CONSULTATION DURING HOSPITALIZATION 1. Dr. Junior from Oncology Services. 2. Dr. Yandel Venegas from Pulmonary Services. 3. Dr. Marcelino Kee from Radiology [facility]cology. 4. Dr. Jeri Cornejo from Endocrinology Services. DISCHARGE DIAGNOSES 1. Acute on chronic hypoxic respiratory failure. 2. Post-obstructive pneumonia. 3. Lung cancer stage III. 4. Intractable pain secondary to above. 5. Diabetes mellitus type 2. 6. History of post-obstructive pneumonia. 7. Anemia. 8. Chronic obstructive pulmonary disease. DISCHARGE MEDICATIONS 1. Levaquin 750 mg p.o. daily for five days. 2. Medrol Dosepak. 3. Florastor one tablet b.i.d. 4. Percocet 10/325 mg one tablet q.4 p.r.n. 5. Protonix 40 mg p.o. daily. 6. Megace 400 mg daily. 7. Colace 100 mg twice a day. 8. MiraLax 17 g daily. 9. Combivent mini neb treatment q.i.d. and q.4 p.r.n. 10. Acetaminophen 650 mg q.6 p.r.n. 11. Magnesium oxide 400 mg b.i.d. 12. Lovenox 40 mg subcu daily. 13. Neurontin 300 mg twice a day. 14. Zonegran 100 mg b.i.d. 15. Glucophage 500 mg t.i.d. LAB WORKUP ON DISCHARGE Glucose 241, sodium 138, potassium 5.2, chloride 96, BUN 20, creatinine 0.7. WBC 26.1, hemoglobin 10.4, hematocrit 32.7, and platelet count of 472. Sputum culture was 1+ normal michaela. HOSPITAL COURSE Unit #: [id number] #: [id number] Patient: TIMBO ARMENTA Ms. is a 70-year-old female who has significant history of squamous cell lung cancer. Patient has stage IIIb right upper lobe. The patient is not a surgical candidate as per Oncology. This is due to her performance status and also size of the mass. The patient does have invasion of the (1) level in the right side. The patient is in significant pain because of that. CT scan of the brain does not demonstrate any metastatic disease. The patient was treated for post-obstructive pneumonia by Dr. Venegas. That antibiotic needs to be completed. Zosyn has been changed to Levaquin for five days. The patient is being discharged to rehab facility at this time. The patient is aware that after she goes out of the rehab, which will be most likely five days, she will need to follow up with Dr. Kee and Dr. Junior because she will need either radiation therapy or chemotherapy. As per Dr. Kee, any therapeutic intervention is likely to be palliative given the extent of her disease. Discussed with patient at length, even Dr. Venegas discussed with patient and patient's family. DISCHARGE INSTRUCTIONS 1. The patient is being discharged to rehab. 2. Medication as per medication reconciliation. 3. Dr. Junior and Dr. Kee to see the patient as soon as she gets out of the rehab. 4. PT, OT at rehab. 5. Oxygen to keep saturation above 94%. 6. Patient will be need home O2 and nebulizer treatment once she gets discharged home. 7. Condition is poor. 8. Prognosis is guarded. Dictated by... Rand Kolb M.D. Isamar TD: 11/04/2016 14:22 JOB #: [id number] DISCHARGE SUMMARY Page 1 of 1 X Rand Kolb MD DISCHARGE SUMMARY
--- NOTE | ~2016-10-23 | EKG ---
PATIENT: TIMBO ARMENTA UNIT #: [id number] Ventricular Rate: 105 BPM Atrial Rate: 105 BPM P-R Interval: 172 ms QRS Duration: 80 ms Q-T Interval: 320 ms QTC Calculation(Bezet): 422 ms P [place]: 54 degrees Calculated R [place]: 28 degrees Calculated T [place]: 58 degrees Diagnosis Line: Sinus tachycardia Diagnosis Line: Possible Left atrial enlargement Diagnosis Line: Borderline ECG Diagnosis Line: No previous ECGs available Diagnosis Line: Confirmed by SARKIS BRODY MD ([id number]) on 10/24/2016 Diagnosis Line: 5:12:27 PM INTERPRETING MD: MARY GRACE SAL
--- NOTE | ~2016-10-23 | CT16 ---
[facility] A Service of [facility] RADIOLOGY TEXT RESULTS PATIENT: TIMBO ARMENTA LOCATION: [facility] 328-01 : 44 UNIT #: [id number] AGE: [address]: Nino Tanner MD SEX: F ORDER DR: [id number] [facility] [address] [facility]. [place], [place] [address] [id number] I MR#: [id number] Acc #: [id number] NAME: TIMBO ARMENTA : 1945 SEX: F STUDY DATE/TIME: 10/24/2016 2:05 UNIT: [address] ROOM: [facility] STUDY DESCRIPTION: CT Angio Chest for PE Attending Physician: Nino Tanner M.D. Ordering Physician: Cisco Moreno D.O. Primary Care Physician: Castillo Soares M.D. MEDICAL IMAGING REPORT This report is preliminary unless electronic signature is present EXAM CT chest with contrast, pulmonary arteriography protocol, 10/24/2016. HISTORY 70-year-old female with lung cancer presenting to the ED complaining of new or worsening respiratory distress, shortness of air today. Headaches. Mental status changes. TECHNIQUE CT examination of the chest with IV contrast using pulmonary arteriography protocol. CTA MIP images of the pulmonary arteries were reformatted in multiple planes. This CT exam was performed with one or more of the following radiation dose reduction techniques: automatic exposure control, adjustment of mA and/or kV according to patient size, and iterative reconstruction. COMPARISON CTA chest, 10/14/2016. FINDINGS No pulmonary embolism is demonstrated. Thoracic aorta is normal in caliber. There is no pericardial effusion. Very large malignant mass throughout the central right upper lung extending to the apical chest wall where there is osseous destruction of the first, second, and third ribs and intercostal extension of tumor. Enlarged right hilar and middle mediastinal lymph nodes are unchanged. Left apical subpleural nodule is unchanged. Mildly increased interstitial markings and ground-glass opacity throughout both lungs when compared with the previous study, suggesting superimposed mild pulmonary edema. There is increasing infiltrate in the right upper [facility] A Service of [facility] RADIOLOGY TEXT RESULTS PATIENT: TIMBO ARMENTA LOCATION: [facility] 328-01 : 44 UNIT #: [id number] AGE: [address]: Nino Tanner MD SEX: F ORDER DR: lobe peripheral to the mass, and the right upper lobe bronchus appears increasingly narrowed since the previous study. There is also new mild subpleural infiltrate and atelectasis in the right lung base. Limited upper abdominal images are unremarkable. IMPRESSION 1. No evidence of pulmonary embolism or other acute vascular abnormality within the chest. 2. Again demonstrated is a very large centrally necrotic malignant right upper lobe mass extending from the hilum to the peripheral chest wall at the lung apex where there is destruction of the first through third ribs and intercostal extension of tumor. This is largely unchanged since the previous study obtained 10 days ago. 3. Likely superimposed mild diffuse interstitial pulmonary edema, also noted on chest x-ray. No pleural or pericardial effusion. 4. Increasing narrowing of the right upper lobe bronchus due to adjacent or surrounding lung tumor. Increasing infiltrate in the right upper lobe peripheral to the mass. 5. Stable right hilar and middle mediastinal adenopathy. Stable left apical lung nodule. Dictated by... Manohar Moreno M.D. THIS IS AN ELECTRONICALLY VERIFIED REPORT Manohar Moreno M.D. at 10/27/2016 11:07 PM ALEJA/lorraine TD: 10/24/2016 13:49 JOB #: [id number] MEDICAL IMAGING REPORT Page 1 of 1 COPY
--- NOTE | ~2016-10-23 | HP ---
Unit #: [id number] #: [id number] Patient: TIMBO BRITO [id number] [address] [address] [id number] I MR#: [id number] NAME: TIMBO BRITO ROOM: 328 Age: 70 Sex: F Admission Date: 10/24/2016 : 1945 Attending Physician: Nino Tanner M.D. Primary Care Physician: Castillo Soares M.D. HISTORY AND PHYSICAL REASON FOR ADMISSION 1. Shortness of air, dyspnea. 2. Hypercapnic respiratory failure. 3. Worsening xwj-outgz-cyxr lung cancer. 4. Chronic hyponatremia. 5. Diabetes. 6. History of recent pneumonia. 7. Anemia of chronic disease. HISTORY OF PRESENT ILLNESS Ms. Brito is a 70-year-old female with recent history of postobstructive pneumonia. She was seen in this hospital earlier this month. At that time imaging study showed worsening right upper lobe large mass. The patient does have a history of huz-pugol-kksf lung cancer. She was evaluated per Dr. Junior at that time and it was felt the patient was not ready for palliative care. The patient was treated and discharged for hyponatremia, which looks like chronic for this lady, most likely secondary to SIADH secondary to lung mass. The patient was readmitted overnight secondary to shortness of air and dyspnea. The patient is a very poor historian and most likely secondary to toxic metabolic encephalopathy. She denies any chest pain. Denies any headache, dizziness. She states that she has been having some fevers and chills. Denies any nausea, vomiting, diarrhea, abdominal pain. PAST MEDICAL HISTORY 1. History of lung cancer. 2. Hyponatremia. 3. Diabetes. 4. Chronic obstructive pulmonary disease. 5. Emphysema. 6. History of tobacco use. PAST SURGICAL HISTORY 1. Hysterectomy. 2. Rectovaginal repair. 3. Bronchoscopy. SOCIAL HISTORY No current history of tobacco, alcohol or illicit drugs. FAMILY HISTORY Unremarkable. HOME MEDICATIONS Unit #: [id number] #: [id number] Patient: TIMBO BRITO 1. Magnesium oxide. 2. Neurontin. 3. Oxycodone. 4. Tylenol. 5. NovoLog. 6. Glucophage. 7. Colace. 8. MiraLAX. 9. Percocet. 10. Probiotic. 11. Levaquin. REVIEW OF SYSTEMS Twelve point review of systems for this patient is negative except as above. PHYSICAL EXAMINATION GENERAL: The patient is an ill-appearing 70-year-old female, otherwise in no acute distress. VITALS: Blood pressure 105/45, heart rate 76, respiratory rate 18, temperature 97.5. HEENT: Head is atraumatic. Pupils equal, round and reactive to light and accommodation. Extraocular muscles intact. Oropharynx clear. NECK: Supple. No jugular venous distension. No bruits. CHEST: Diminished bilaterally. HEART: S1 and S2. No murmurs. ABDOMEN: Soft, nontender and nondistended. EXTREMITIES: Lower extremities without any significant cyanosis, clubbing or edema. NEUROLOGIC: The patient is without any focal deficits. She is alert and oriented, however, slightly confused. DIAGNOSTIC STUDIES LABORATORY: ABG significant for CO2 46.3. Chemistry significant for sodium of 131. Blood glucose 181. PT/INR 12.2 and 1.1. White count 28.9, hemoglobin 10.7, hematocrit 32.8. ASSESSMENT/PLAN 1. Shortness of air, dyspnea: Questionable recurrent pneumonia, status post evaluation per pulmonary. Continue antibiotics per pulmonary. Continue bronchodilator. 2. Hypercapnic respiratory failure: As above. 3. Worsening xwd-cscnp-qgxd lung cancer: Will ask Dr. Junior for reevaluation. Last time she was discharged she was supposed to follow up as an outpatient with PET scan. 4. Chronic hyponatremia: Follow sodium daily. 5. Diabetes: Resume home medications along with sliding scale insulin. 6. History of recent pneumonia: As above. 7. Anemia of chronic disease: Monitor hemoglobin and hematocrit. 8. GI and DVT prophylaxis: Started on PPI and Lovenox. Dictated by Kathrin Griffiths Unit #: [id number] #: [id number] Patient: TIMBO BRITO TD: 10/25/2016 07:27 JOB #: [id number] HISTORY AND PHYSICAL Page 1 of 1 X Cathy,Jack SAL X HISTORY AND PHYSICAL
--- NOTE | ~2016-10-23 | A ---
[facility] Nutrition Therapy DATE: 11/04/16 Patient: TIMBO ARMENTA Physician: JEREMY Address: [address] [facility] Room/Bed: [address] [place] [address], Zip: [place] [address] Admit Date: 10/24/16 Date of : 44 Height: 5 4 Weight: 134 61.2 NUTRITIONAL ASSESSMENT: REASON: Seen due to length of stay Admitting dx: 70 y/o female admitted with respiratory distress PMH: DM, recent PNA, COPD, emphysema, lung cancer, anemia, hx of tobacco use, hyponatremia Anthropometrics: Ht: 64", Wt: 132-134 lbs, BMI: 22 (normal), past weights: 125-160 lbs Labs: K+ 5.2, glucose 162, POC 146-241, A1C 6.3 (09/16/16) Meds: Colace, megace, prednisone, high SSI, zofran prn, PPI, mag-ox I/O & Bowel function: BM 11/03 Skin Integrity: stage II pressure ulcer coccyx, no edema Assessment: Chart reviewed, events noted. See admitting dx and PMH as stated above. RD assessing due to length of stay. Patient has worsening lung cancer, is on 3-4 L nasal cannula, generalized weakness noted. No new malnutrition risk screening performed upon admission, therefore RD was not triggered to assess regarding pt's pressure ulcer. Weight appears stable per past weights. Patient is on 2g sodium diet. Upon entry to room, she is wailing for more pillows. She did not answer RD questions, however I did observe 100% of her lunch tray consumed with no chewing or swallowing difficulties. See recs below, will follow. Dx: Increased nutrient needs r/t wound healing requirements AEB stage II pressure ulcer. Intervention: consistent carb diet, wound care prn Monitoring, Evaluation and Goals: 1. PO intake 50-100% of meals. 2. Glucose WNL. 3. Promote wound healing. Monitor: per protocol, criteria to determine if above goals met Recommendations: 1. Please change diet to 60 g carb/meal. Encourage adequate protein intake. [facility] Nutrition Therapy DATE: 11/04/16 Patient: TIMBO ARMENTA Physician: NAISUR Address: [address] [place] [address] Room/Bed: [address] [place] [address], Zip: [place] [address] Admit Date: 10/24/16 Date of : 44 Height: 5 4 Weight: 134 61.2 2. Wound care prn. 3. Optimize insulin regimen to promote adequate blood glucose control. RD will follow Mild nutrition risk Respectfully, Umu Beatty RD, [facility] [employer] [facility] cc: client file
--- NOTE | ~2016-10-23 | CO ---
Unit #: [id number] #: [id number] Patient: TIMBO ARMENTA [id number] [address] [place], [place] [address] [id number] MR#: [id number] NAME: TIMBO ARMENTA ROOM: 328 Age: 70 Sex: F Admission Date: 10/24/2016 : 1945 Attending Physician: Nino Tanner M.D. Primary Care Physician: Castillo Soares M.D. Consultation Date: 10/31/2016 CONSULTATION REPORT REASON FOR CONSULTATION Uncontrolled blood sugars. HISTORY OF PRESENT ILLNESS A 70-year-old female, who has a history of stage III lung CA right low on chemotherapy and radiation treatment. The patient had been admitted with respiratory failure, postoperative pneumonia. She is currently on Solu-Medrol. Her blood sugar has been running 400 to 500 mg/dL. I have been asked to see the patient for further management. PAST MEDICAL HISTORY Type 2 diabetes mellitus, respiratory failure, stage III lung CA. PAST SURGICAL HISTORY Hysterectomy and history of bronchoscopy. MEDICATIONS Prednisone 20 mg daily, Pepcid, aspirin, Lovenox. ALLERGIES Multiple drug allergies to erythromycin, Benadryl, latex. SOCIAL HISTORY History of extensive tobacco use. No alcohol. REVIEW OF SYSTEMS A 12-point review of systems completed remarkable for the increasing shortness of air, loss of weight, high blood sugars, but declines any chest pains. Rest of the review of systems unremarkable. PHYSICAL EXAMINATION GENERAL: She is in no acute respiratory distress. VITAL SIGNS: Temperature 97.2, pulse 84, respiratory rate 18, blood pressure 98/45. HEENT: EOMI. Pupils equally reactive to light. NECK: Supple. No thyromegaly. CHEST: Decreased air entry bilaterally with wheezing . CVS: Regular rhythm. No murmurs. ABDOMEN: Soft and nontender. Bowel sounds positive. EXTREMITIES: No edema noted. DIAGNOSTIC STUDIES LABORATORY RESULTS: Reviewed. A1c 09/16/2016 was 6.3. Accu-Chek log is Unit #: [id number] #: [id number] Patient: TIMBO ARMENTA reviewed. ASSESSMENT 1. Type 2 diabetes mellitus with worsening blood sugars secondary to the IV steroids. 2. Stage III lung cancer. PLAN At this time, I am going to discontinue the patient's Levemir dose. Change sliding scale to medium dose. Discussed with the patient and then to avoid sweets and juices. Start the patient on NPH 25 units before each Solu-Medrol dose. Accu-Cheks a.c. and h.s. and discussed with the family. Dictated by... Kathrin Christine/roslyn TD: 10/31/2016 18:25 JOB #: [id number] CONSULTATION REPORT Page 1 of 1 X Jeri Cornejo MD X CONSULTATION REPORT
--- NOTE | ~2016-10-23 | CR72 ---
[facility] A Service of [facility] & [facility] RADIOLOGY TEXT RESULTS PATIENT: TIMBO ARMENTA LOCATION: [facility] 328-01 : 44 UNIT #: [id number] AGE: [address]: Nino Tanner MD SEX: F ORDER DR: [id number] [facility] [address] [facility] [address] [place] [place], [place] [address] [id number] I MR#: [id number] Acc #: [id number] NAME: TIMBO ARMENTA : 1945 SEX: F STUDY DATE/TIME: 10/23/2016 23:25 UNIT: [address] ROOM: [facility] STUDY DESCRIPTION: CR Chest Single View Portable Attending Physician: Nino Tanner M.D. Ordering Physician: Cisco Moreno D.O. Primary Care Physician: Castillo Soares M.D. MEDICAL IMAGING REPORT This report is preliminary unless electronic signature is present EXAM Chest x-ray, 10/23/2016. HISTORY 70-year-old female with history of large lung cancer in the right upper chest, presenting to the ED with shortness of air and weakness beginning earlier today. TECHNIQUE AP portable upright chest x-ray. FINDINGS The examination again demonstrates a very large malignant mass in the right upper chest with chest wall invasion and bony destruction of the first, second and third ribs, best demonstrated on the recent chest CT of 10/14/2016. Background pulmonary emphysema. Today, diffuse interstitial markings have increased since 10/14/2016. This may represent mild pulmonary interstitial edema, which may be cardiogenic or noncardiogenic. Heart size is normal. Shallow lung expansion. No visible pleural effusion or pneumothorax. IMPRESSION 1. Large malignant mass in the right upper chest with destructive chest wall invasion. 2. Possible mild interstitial pulmonary edema, new since 10/14/2016. Dictated by... Manohar Moreno M.D. THIS IS AN ELECTRONICALLY VERIFIED REPORT Manohar Moreno M.D. at 10/27/2016 11:06 PM CAMELIAW/cary STS. [facility] A Service of [facility] & [facility] RADIOLOGY TEXT RESULTS PATIENT: TIMBO ARMENTA LOCATION: [facility] 328-01 : 44 UNIT #: [id number] AGE: [address]: Nino Tanner MD SEX: F ORDER DR: TD: 10/24/2016 13:06 JOB #: [id number] MEDICAL IMAGING REPORT Page 1 of 1 COPY
--- NOTE | ~2016-10-23 | CO ---
Unit #: [id number] #: [id number] Patient: TIMBO ARMENTA [id number] [address] [address] [id number] I MR#: [id number] NAME: TIMBO ARMENTA ROOM: 328 Age: 70 Sex: F Admission Date: 10/24/2016 : 1945 Attending Physician: Nino Tanner M.D. Primary Care Physician: Castillo Soares M.D. Consultation Date: 10/24/2016 CONSULTATION REPORT REASON FOR CONSULTATION Shortness of breath. HISTORY OF PRESENT ILLNESS This is a 70-year-old female, who is well known to our service from previous admission, with past medical history significant for advanced COPD and squamous cell cancer, who presented to the emergency room from the intermediate with respiratory distress and hypoxia. Patient is confused why she is here and she is providing conflicting information; however, per the ED report, patient was found to be severely hypoxic at the intermediate with oxygen saturation of 68%. Patient admitted that she has been coughing and she had fever two to three days ago. No nausea, vomiting or diarrhea. No chest pain but at this point however she said three days ago she had severe chest pain and then she thought that her cancer broke in small pieces and her chest pain resolved after that. PAST MEDICAL HISTORY 1. Advanced COPD. 2. Non-small cell lung cancer. 3. Hyponatremia. 4. Diabetes type 2. 5. Malnutrition. PAST SURGICAL HISTORY 1. Bronchoscopy with endobronchial biopsy. 2. Hysterectomy. 3. Rectovaginal repair. HOME MEDICATION 1. Prednisone. 2. Sliding scale. 3. Lidoderm. 4. Pepcid. 5. Nystatin. 6. Aspirin. 7. Lovenox. 8. Percocet. 9. Tylenol. ALLERGIES Unit #: [id number] #: [id number] Patient: TIMBO ARMENTA 1. Albuterol. 2. Erythromycin. 3. Benadryl. 4. Latex. SOCIAL HISTORY Patient quit smoking a few weeks ago. No history of alcohol or drug abuse. FAMILY HISTORY Noncontributory. REVIEW OF SYMPTOMS A 12-point review of symptoms was obtained and was negative except for what was mentioned in the HPI. PHYSICAL EXAMINATION GENERAL: The patient is in no acute distress. VITAL SIGNS: Blood pressure is 110/62. Respiratory rate 18. O2 saturation 94%. HEENT: Normocephalic and atraumatic. PERRLA. EOMI. NECK: Supple. No JVD. No lymphadenopathy. CHEST: Diminished breath sounds bilaterally. HEART: S1, S2. No murmur, gallops or rubs. ABDOMEN: Soft, nontender. Bowel sound is positive. No hepatosplenomegaly. EXTREMITIES: No edema or cyanosis. SKIN: No rashes. CLOTH GRADER: Awake, alert, oriented x3. No focal motor/sensory deficit. DIAGNOSTIC STUDIES LABORATORY: Creatinine 0.7, blood sugar 222, chloride 96, sodium 126. IMAGING: CT angiogram is reviewed and noted by me. ASSESSMENT 1. Dklsg-fi-xbgugwo hypoxic respiratory failure. 2. Rule out postobstructive pneumonia. 3. Chronic obstructive pulmonary disease exacerbation from last admission. 4. Diabetes. 5. Non-small cell lung cancer. 6. Malnutrition. 7. Extensive history of smoking. PLAN 1. Will wean oxygen down to baseline which is 2 to 3 L nasal cannula. 2. Will add bronchodilator and mucolytics. 3. Will continue IV steroid since she was on oral steroid at the intermediate. 4. Patient was placed on vancomycin, tobramycin and Zosyn which will continue pending further culture. 5. Oncology evaluation. 6. Patient may need hospice eval at some point. I jacquelin like to thank Dr. Kolb for allowing me to be part of this patient's care. Unit #: [id number] #: [id number] Patient: TIMBO ARMENTA Dictated by... Kathrin Phipps TD: 10/24/2016 21:42 JOB #: [id number] CONSULTATION REPORT Page 1 of 1 X ARABELLA PEREZ MD CONSULTATION REPORT
[~2016-10-23 22:58] MED LIST changes: +DELTASONE20 MG PO; +DOCUSATE SODIU100 MG PO; +GLUCOTROL PO; +IBUPROFEN PO; +LASIX PO; +LIDODERM1 EACH TOP; +METFORMIN HCL1000 M2 PO; +MIRALAX17 GM PO; +NYSTATIN1 EAC2 TOP; +OXYCODONE-ACET1 EAC1 PO; +PRILOSEC PO
[2016-10-23 23:22] LABS: ARTERIAL BLD GAS O2 SATURATION 96.9 % (90.0-100.0); ARTERIAL BLOOD GAS ALLEN TEST NORMAL; ARTERIAL BLOOD GAS ART SITE RIGHT RADIAL; ARTERIAL BLOOD GAS CARBOXY HB 1.5 %sat (0.0-9.0); ARTERIAL BLOOD GAS DELIVERY NASAL CANNULA; ARTERIAL BLOOD GAS HCO3 29.9 mmol/L; ARTERIAL BLOOD GAS MET HB 0.5 %sat (0.0-2.0); ARTERIAL BLOOD GAS PCO2 46.3 mmHg (35.0-45.0); ARTERIAL BLOOD GAS PO2 81.9 mmHg (80.0-100); ARTERIAL BLOOD GAS pH 7.419 (7.350-7.450); ARTERIAL DRAW? YES
[2016-10-23 23:30] LABS: BASOPHIL# 0.2 X10e3 (0-0.3); BASOPHIL% 0.6 % (0-2.5); EOSINOPHIL# 0.2 X10e3 (0-0.7); EOSINOPHIL% 0.5 % (0.0-7.0); HEMATOCRIT 33.8 % (35.0-45.0); HEMOGLOBIN 10.7 gm/dL (12.0-16.0); LYMPHOCYTE# 2.1 X10e3 (1.0-3.5); LYMPHOCYTE% 7.3 % (17.0-45.0); MEAN CELL VOLUME 88.8 FL (83-96); MEAN CORPUSCULAR HEMOGLOBIN 28.1 PG (28-34); MEAN CORPUSCULAR HGB CONC 31.6 g/dL (30-36); MEAN PLATELET VOLUME 7.1 FL (6.5-11.5); MONOCYTE# 2.3 X10e3 (0-1.0); NEUTROPHIL# 24.1 X10e3 (1.5-7.1); NEUTROPHIL% 83.6 % (40-75); PLATELET COUNT 501 X10e3 (140-420); RED BLOOD COUNT 3.81 X10e (3.90-5.30); RED CELL DISTRIBUTION WIDTH 15.8 % (11.0-15.5); WHITE BLOOD COUNT 28.9 X10e3 (4.0-10.5)
[2016-10-23 23:33] LABS: DIFF IND YES
[2016-10-23 23:34] LABS: POC - CKMB <1.0 ng/mL (0.0-7.9); POC - TROPONIN <0.05 ng/mL (<=0.05)
[2016-10-23 23:42] LABS: INR 1.1; PARTIAL THROMBOPLASTIN TIME 28.5 SECONDS (23.5-31.3); PROTHROMBIN TIME (PATIENT) 12.2 SECONDS (10.0-11.7)
[2016-10-23 23:56] LABS: ALBUMIN SERUM 2.4 g/dL (3.5-5.0); BILIRUBIN, DIRECT 0.1 mg/dL (0.0-0.2); BILIRUBIN,INDIRECT 0.3 mg/dL (0.0-0.9); BILIRUBIN,TOTAL 0.4 mg/dL (0.2-2.0); BUN/CREATININE RATIO 38.57; CALCIUM SERUM 10.2 mg/dL (8.4-10.2); CREATININE SERUM 0.7 mg/dL (0.6-1.4); GLOM FILT RATE Estimated 87.2 mL/min (>60); PLATELET ESTIMATE INCREASED (NORMAL); POTASSIUM 4.4 mmol/L (3.5-5.1)
[2016-10-23 23:57] LABS: ANISOCYTOSIS MOD
[2016-10-24 00:41] LABS: URINE APPEARANCE CLEAR; URINE BILIRUBIN NEG (NEG); URINE BLOOD NEG (NEG); URINE COLOR YELLOW; URINE GLUCOSE NEG (NEG); URINE KETONE NEG (NEG); URINE LEUKOCYTE ESTERASE TRACE (NEG); URINE NITRATE NEG (NEG); URINE PROTEIN NEG (NEG); URINE SPECIFIC GRAVITY 1.019 (1.003-1.035)
[2016-10-24 00:44] LABS: URBCS1 AUWI 0-2 /[HPF] (0-2); URINE BACTERIA AUWI NEG (NEGATIVE); URINE SQUAMOUS EPITHELIAL CELL OCC /[HPF]; UWBCS1 AUWI 0-2 (0-5)
[2016-10-24 00:48] LABS: CULTURE INDICATED? NO
[2016-10-24] MEDS ORDERED: MAG-OX 400400 M1 PO (03:05)
[2016-10-24] MEDS ORDERED: NEURONTIN300 MG PO (03:05)
[2016-10-24] MEDS ORDERED: OXYCODONE-ACET1 EAC1 PO (03:06)
[2016-10-24] MEDS ORDERED: TYL325 PO (03:07)
[2016-10-24] MEDS ORDERED: ZONEGRAN100 M1 PO (03:07)
[2016-10-24] MEDS ORDERED: GLUCOPHAGE500 MG PO (03:08)
[2016-10-24] MEDS ORDERED: DOCUSATE SODIU100 MG PO (03:08)
[2016-10-24] MEDS ORDERED: NOVOLOG100 U/ML (03:08)
[2016-10-24] MEDS ORDERED: MIRALAX17 GM PO (03:08)
[2016-10-24 03:09] LABS: POC - CKMB <1.0 ng/mL (0.0-7.9); POC - TROPONIN <0.05 ng/mL (<=0.05)
[2016-10-24] MEDS ORDERED: PERCOCET10 PO (03:09)
[2016-10-24] MEDS ORDERED: PROBIOTIC250 MG PO (03:10)
[2016-10-24] MEDS ORDERED: LEVAQUIN PO (03:10)
[2016-10-25 06:37] LABS: HEMATOCRIT 31.8 % (35.0-45.0); HEMOGLOBIN 10.4 gm/dL (12.0-16.0); MEAN CELL VOLUME 88.7 FL (83-96); MEAN CORPUSCULAR HEMOGLOBIN 28.9 PG (28-34); MEAN CORPUSCULAR HGB CONC 32.5 g/dL (30-36); RED BLOOD COUNT 3.59 X10e (3.90-5.30); RED CELL DISTRIBUTION WIDTH 15.7 % (11.0-15.5); WHITE BLOOD COUNT 22.2 X10e3 (4.0-10.5)
[2016-10-25 07:03] LABS: BUN/CREATININE RATIO 32.85; CALCIUM SERUM 9.9 mg/dL (8.4-10.2); CREATININE SERUM 0.7 mg/dL (0.6-1.4); GLOM FILT RATE Estimated 87.2 mL/min (>60); POTASSIUM 3.9 mmol/L (3.5-5.1)
[2016-10-26 06:26] LABS: BUN/CREATININE RATIO 31.42; CALCIUM SERUM 9.6 mg/dL (8.4-10.2); CREATININE SERUM 0.7 mg/dL (0.6-1.4); GLOM FILT RATE Estimated 87.2 mL/min (>60); POTASSIUM 4.1 mmol/L (3.5-5.1)
[2016-10-26 06:28] LABS: BASOPHIL% 0.1 % (0-2.5); EOSINOPHIL# 0.1 X10e3 (0-0.7); EOSINOPHIL% 0.4 % (0.0-7.0); HEMATOCRIT 31.2 % (35.0-45.0); LYMPHOCYTE# 2.3 X10e3 (1.0-3.5); LYMPHOCYTE% 10.6 % (17.0-45.0); MEAN CELL VOLUME 88.6 FL (83-96); MEAN CORPUSCULAR HEMOGLOBIN 28.5 PG (28-34); MEAN CORPUSCULAR HGB CONC 32.1 g/dL (30-36); MEAN PLATELET VOLUME 7.1 FL (6.5-11.5); MONOCYTE# 1.5 X10e3 (0-1.0); MONOCYTE% 6.9 % (3.0-12.0); PLATELET COUNT 516 X10e3 (140-420); RED BLOOD COUNT 3.52 X10e (3.90-5.30); RED CELL DISTRIBUTION WIDTH 15.9 % (11.0-15.5)
[2016-10-26 06:30] LABS: DIFF IND NO
[2016-10-27 01:38] LABS: CALCIUM SERUM 9.6 mg/dL (8.4-10.2); CREATININE SERUM 0.5 mg/dL (0.6-1.4); GLOM FILT RATE Estimated 97.4 mL/min (>60); POTASSIUM 4.3 mmol/L (3.5-5.1)
[2016-10-27 06:22] LABS: HEMATOCRIT 33.2 % (35.0-45.0); HEMOGLOBIN 10.6 gm/dL (12.0-16.0); MEAN CELL VOLUME 88.8 FL (83-96); MEAN CORPUSCULAR HEMOGLOBIN 28.4 PG (28-34); MEAN PLATELET VOLUME 7.2 FL (6.5-11.5); RED BLOOD COUNT 3.73 X10e (3.90-5.30); RED CELL DISTRIBUTION WIDTH 15.7 % (11.0-15.5); WHITE BLOOD COUNT 20.6 X10e3 (4.0-10.5)
[2016-10-30 05:35] LABS: HEMATOCRIT 34.9 % (35.0-45.0); HEMOGLOBIN 11.2 gm/dL (12.0-16.0); MEAN CELL VOLUME 89.2 FL (83-96); MEAN CORPUSCULAR HEMOGLOBIN 28.7 PG (28-34); MEAN CORPUSCULAR HGB CONC 32.1 g/dL (30-36); MEAN PLATELET VOLUME 7.3 FL (6.5-11.5); RED BLOOD COUNT 3.92 X10e (3.90-5.30); RED CELL DISTRIBUTION WIDTH 15.8 % (11.0-15.5); WHITE BLOOD COUNT 20.5 X10e3 (4.0-10.5)
[2016-11-01 07:17] LABS: HEMATOCRIT 32.6 % (35.0-45.0); HEMOGLOBIN 10.3 gm/dL (12.0-16.0); MEAN CELL VOLUME 89.3 FL (83-96); MEAN CORPUSCULAR HEMOGLOBIN 28.1 PG (28-34); MEAN CORPUSCULAR HGB CONC 31.5 g/dL (30-36); RED BLOOD COUNT 3.65 X10e (3.90-5.30); RED CELL DISTRIBUTION WIDTH 15.9 % (11.0-15.5); WHITE BLOOD COUNT 23.1 X10e3 (4.0-10.5)
[2016-11-01 07:27] LABS: BUN/CREATININE RATIO 41.66; CALCIUM SERUM 9.7 mg/dL (8.4-10.2); CREATININE SERUM 0.6 mg/dL (0.6-1.4); GLOM FILT RATE Estimated 91.7 mL/min (>60); POTASSIUM 5.3 mmol/L (3.5-5.1)
[2016-11-02 06:59] LABS: HEMATOCRIT 32.2 % (35.0-45.0); HEMOGLOBIN 10.3 gm/dL (12.0-16.0); MEAN CELL VOLUME 89.9 FL (83-96); MEAN CORPUSCULAR HEMOGLOBIN 28.7 PG (28-34); MEAN CORPUSCULAR HGB CONC 31.9 g/dL (30-36); RED BLOOD COUNT 3.58 X10e (3.90-5.30); RED CELL DISTRIBUTION WIDTH 16.1 % (11.0-15.5); WHITE BLOOD COUNT 26.1 X10e3 (4.0-10.5)
[2016-11-02 07:18] LABS: CALCIUM SERUM 9.3 mg/dL (8.4-10.2); CREATININE SERUM 0.4 mg/dL (0.6-1.4); GLOM FILT RATE Estimated 104.8 mL/min (>60); MAGNESIUM 1.7 mg/dL (1.6-3.0); POTASSIUM 4.8 mmol/L (3.5-5.1)
[2016-11-03 05:50] LABS: HEMATOCRIT 34.5 % (35.0-45.0); HEMOGLOBIN 10.8 gm/dL (12.0-16.0); MEAN CELL VOLUME 90.5 FL (83-96); MEAN CORPUSCULAR HEMOGLOBIN 28.3 PG (28-34); MEAN CORPUSCULAR HGB CONC 31.3 g/dL (30-36); MEAN PLATELET VOLUME 7.2 FL (6.5-11.5); RED BLOOD COUNT 3.81 X10e (3.90-5.30); RED CELL DISTRIBUTION WIDTH 16.5 % (11.0-15.5); WHITE BLOOD COUNT 26.5 X10e3 (4.0-10.5)
[2016-11-03 06:55] LABS: BUN/CREATININE RATIO 37.5; CALCIUM SERUM 9.8 mg/dL (8.4-10.2); CREATININE SERUM 0.4 mg/dL (0.6-1.4); GLOM FILT RATE Estimated 104.8 mL/min (>60); MAGNESIUM 1.7 mg/dL (1.6-3.0); POTASSIUM 4.7 mmol/L (3.5-5.1)
[2016-11-04 04:57] LABS: URINE APPEARANCE CLEAR; URINE BILIRUBIN NEG (NEG); URINE BLOOD NEG (NEG); URINE COLOR YELLOW; URINE GLUCOSE NEG (NEG); URINE KETONE NEG (NEG); URINE LEUKOCYTE ESTERASE TRACE (NEG); URINE NITRATE NEG (NEG); URINE PH 5.5 (5-8); URINE PROTEIN TRACE (NEG); URINE UROBILINOGEN 0.2 MG/DL (NEG)
[2016-11-04 05:00] LABS: CULTURE INDICATED? NO; U HYALINE CASTS AUWI 0-2 /[LPF]; URBCS1 AUWI NEG /[HPF] (0-2); URINE BACTERIA AUWI NEG (NEGATIVE); URINE SQUAMOUS EPITHELIAL CELL OCC /[HPF]
[2016-11-04 05:42] LABS: HEMATOCRIT 32.7 % (35.0-45.0); HEMOGLOBIN 10.4 gm/dL (12.0-16.0); MEAN CELL VOLUME 89.7 FL (83-96); MEAN CORPUSCULAR HEMOGLOBIN 28.6 PG (28-34); MEAN CORPUSCULAR HGB CONC 31.9 g/dL (30-36); MEAN PLATELET VOLUME 7.1 FL (6.5-11.5); RED BLOOD COUNT 3.64 X10e (3.90-5.30); RED CELL DISTRIBUTION WIDTH 16.5 % (11.0-15.5); WHITE BLOOD COUNT 26.1 X10e3 (4.0-10.5)
[2016-11-04 06:15] LABS: BUN/CREATININE RATIO 28.57; CALCIUM SERUM 10.2 mg/dL (8.4-10.2); CREATININE SERUM 0.7 mg/dL (0.6-1.4); GLOM FILT RATE Estimated 87.2 mL/min (>60); POTASSIUM 5.2 mmol/L (3.5-5.1)
== END 2016-11-04 20:52 | DRG 189 ==
LOC: CED 22:58 → CEDOF 10-24 04:36 → CED 10-24 05:10 → CEDOF 10-24 05:10 → C3A PCU 10-24 05:10 → CEDOF 10-24 06:30 → C3A PCU 10-24 06:30
PROVIDERS: Emergency Medicine; Hospitalist; Internal Medicine; Internal Medicine Pulmonary Disease; Physician Assistant Medical
PROC: B32TYZZ Computerized Tomography (CT Scan) of Left Pulmonary Artery using Other Contrast (ICD-10-PCS; principal; 2016-10-24)
PROC: B325YZZ Computerized Tomography (CT Scan) of Bilateral Common Carotid Arteries using Other Contrast (ICD-10-PCS; 2016-10-24)
DX: J96.21 Acute and chronic respiratory failure with hypoxia (principal); J18.9 Pneumonia, unspecified organism; E46 Unspecified protein-calorie malnutrition; E11.65 Type 2 diabetes mellitus with hyperglycemia; C34.11 Malignant neoplasm of upper lobe, right bronchus or lung; D64.89 Other specified anemias; J44.0 Chronic obstructive pulmonary disease with (acute) lower respiratory infection; E87.1 Hypo-osmolality and hyponatremia; J44.1 Chronic obstructive pulmonary disease with (acute) exacerbation; J96.22 Acute and chronic respiratory failure with hypercapnia; T38.0X5A Adverse effect of glucocorticoids and synthetic analogues, initial encounter; Z91.040 Latex allergy status; Z79.82 Long term (current) use of aspirin; Z79.84 Long term (current) use of oral hypoglycemic drugs; Z90.710 Acquired absence of both cervix and uterus; Z68.22 Body mass index [BMI] 22.0-22.9, adult
CPT/HCPCS: 36415; 36600; 51702; 70450; 71010; 71275; 80048; 80076; 80200; 80202; 81003; 82553; 82803; 82947; 83605; 83735; 83880; 84132; 84484; 85025; 85027; 85610; 85730; 87040; 87070; 87086; 87186; 87205; 93005; 94640; 94760; 96365; 96375; 97110; 97116; 97162; 97166; 97530; 97535; 99285; G8978-GP; G8979-GP; G8987-GO; G8988-GO; J1650; J1815; J1885; J2405; J2543; J2920; J2930; J3260; J3370; Q9967

== ENCOUNTER 2016-11-06 10:47 | Inpatient (IN) | payer MEDICARE ==
[~2016-11-06] VITALS: Ht 165.1 cm; Wt 74.5 kg
--- NOTE | ~2016-11-06 | CT71 ---
[facility] A Service of [facility] & [facility] RADIOLOGY TEXT RESULTS PATIENT: TIMBO ARMENTA LOCATION: [address] : 44 UNIT #: [id number] AGE: [address]: Rand Kolb MD SEX: F ORDER DR: [id number] [facility] [address] [place], [place] [address] [id number] I MR#: [id number] Acc #: [id number] NAME: TIMBO ARMENTA : 1945 SEX: F STUDY DATE/TIME: 11/06/2016 12:55 UNIT: [facility] ROOM: [facility] STUDY DESCRIPTION: CT Head Wo Contrast Attending Physician: Rand Kolb M.D. Ordering Physician: Mandeep Calvo M.D. Primary Care Physician: Castillo Soares M.D. MEDICAL IMAGING REPORT This report is preliminary unless electronic signature is present EXAM CT head 11/06/2016 HISTORY Full arrest while at assisted today witnessed arrest, unresponsive down 1.5 hours prior to resuscitation. TECHNIQUE This CT exam was performed with one or more of the following radiation dose reduction techniques: automatic control, adjustment of mA and/or kV according to patient size, and iterative reconstruction. FINDINGS CT head performed skull base through vertex without intravenous contrast. Some images repeated due to motion artifact. The brainstem cerebellum and cerebral hemispheres show generalized decrease in liao matter - white matter differentiation most pronounced in the bilateral cerebellar hemispheres, temporal and parietal lobes with less pronounced decrease differentiation in the more cephalad frontal and parietal lobes. There is new diffuse hypodensity in the caudate nuclei and the bilateral putamens. There is cerebral edema with significantly decreased sulcation particularly in the bilateral temporal and parietal lobes and decreased ventricular volume. Given patient's history, findings most suggestive of a diffuse anoxic injury to the brain. I do not see evidence of parenchymal hemorrhage. The anterior and middle cerebral arteries and the dural venous sinuses appear somewhat hyperdense but this may be a artifact related to adjacent edematous relatively hypodense brain. I cannot strictly exclude some components of thrombus. This could be differentiated if it would assist in management with MRI. There are underlying periventricular and deep white matter tract probable sequelae of chronic microvascular ischemia. There is no extraaxial mass effect or abnormal fluid collection. The intraorbital soft tissues have an appearance suggesting proptosis. Correlate with exam. Air-fluid levels [facility] A Service of [facility] & [facility] RADIOLOGY TEXT RESULTS PATIENT: TIMBO ARMENTA LOCATION: [facility]3-14 : 44 UNIT #: [id number] AGE: [address]: Rand Kolb MD SEX: F ORDER DR: bilateral maxillary and sphenoid sinuses. Extensive mucosal thickening in the ethmoid air cells. No acute bony abnormality. IMPRESSION 1. Findings discussed with Dr. Calvo at time of this dictation. Findings most suggestive of extensive anoxic brain injury. There is a marked loss of liao matter - white matter differentiation in visualized brain stem, cerebellum, and bilateral cerebral hemispheres with some preservation of liao matter white matter differentiation in the mid to superior parietal and frontal lobes. There is associated edema with markedly decreased sulcation and ventricular volume in comparison to prior study in September 2016. I see no midline shift downward or upward herniation. No associated parenchymal hemorrhage. 2. New extensive decreased density in the bilateral caudate nuclei and bilateral putamens consistent with subacute ischemia. 3. Underlying chronic periventricular and deep white matter tract probable sequelae of chronic microvascular ischemia. 4. Diffuse relatively increased apparent density of the dural venous sinuses and the central portions of middle and anterior cerebral arteries. I would favor that this is an artifact related to the relatively hypodense adjacent brain parenchyma. I cannot strictly exclude elements of thrombosis in these vascular structures. It would assist in patient management, this finding could be further evaluated with MRI. 5. Air-fluid levels bilateral maxillary and sphenoid sinuses. Extensive mucosal thickening opacification in bilateral ethmoid air cells. Dictated by... Bunny Michelle M.D. THIS IS AN ELECTRONICALLY VERIFIED REPORT Bunny Michelle M.D. at 11/08/2016 10:01 PM SALBADOR/kassie TD: 11/06/2016 18:03 JOB #: [id number] MEDICAL IMAGING REPORT Page 1 of 1 COPY
--- NOTE | ~2016-11-06 | CO ---
Unit #: [id number] #: [id number] Patient: TIMBO ARMENTA [id number] [address] [address] [id number] Lilia MR#: [id number] NAME: TIMBO ARMENTA ROOM: [facility] Age: 70 Sex: F Admission Date: 11/06/2016 : 1945 Attending Physician: Rand Kolb M.D. Primary Care Physician: Castillo Soares M.D. Consultation Date: 11/06/2016 CONSULTATION REPORT REASON FOR CONSULT ICU management. HISTORY OF PRESENT ILLNESS This is a very well known patient to our service who is a 70-year-old female with a past medical history significant of stage 3 squamous cell lung cancer, COPD, who presented to the emergency room as a cardiac arrest after she was found down at the fdc. Patient was just discharged from the hospital a few days ago after an admission for pneumonia. At that time I had a lengthy discussion with the patient about goals of care and I suggested Hospice as she is dealing with extensive and aggressive cancer with minimal chance of recovery; however, at that time expressed wishes for full care, seeking chemo and radiation. Apparently patient was found down at the fdc and CPR was initiated and lasted at least an hour. Upon presentation to our emergency room patient had no gag, cough, or corneal reflexes. She was noted to be bradycardia and she underwent a pacemaker placement. PAST MEDICAL HISTORY 1. Squamous cell lung cancer. 2. Diabetes. 3. COPD. 4. Hypertension. 5. Smoking. 6. Hyponatremia. PAST SURGICAL HISTORY 1. Hysterectomy. 2. Rectovaginal repair. 3. Bronchoscopy. ALLERGIES Albuterol, erythromycin, Benadryl, latex, phenylephrine. SOCIAL HISTORY Patient smoked extensively for a long time but she quit after she was diagnosed with lung cancer. No history of alcohol or drug abuse. FAMILY HISTORY Unremarkable. PHYSICAL EXAMINATION Unit #: [id number] #: [id number] Patient: TIMBO ARMENTA GENERAL: The patient is on the vent. VITAL SIGNS: Blood pressure is 116/73, respiratory rate 16, O2 saturation 96%. HEENT: Atraumatic, normocephalic. PERRLA. EOMI. NECK: Supple. No JVD. No lymphadenopathy. CHEST: Bilateral course rhonchi and wheezing. HEART: S1, S2. No murmur, gallop or rubs. ABDOMEN: Soft, nontender. Bowel sounds positive. No hepatosplenomegaly. EXTREMITIES: No edema or cyanosis. SKIN: No rash. CENTRAL NERVOUS SYSTEM: The patient is intubated with no sedation. She is not withdrawing to painful stimuli. No gag, corneal, or cough reflexes. DIAGNOSTIC STUDIES LABS AND OTHER TESTS: Creatinine 0.8, CO2 18, calcium 7.3, white blood count is 22.5, hemoglobin 8.2. IMAGING STUDIES: Chest x-ray is reviewed and noted by me. ASSESSMENT 1. Acute on chronic hypoxic hypercarbic respiratory failure. 2. PEA cardiac arrest. 3. Stage 3 squamous lung cancer. 4. Obstructive pneumonia. 5. COPD exacerbation. 6. Chronic anemia. 7. Possible anoxic brain injury. PLAN 1. Would continue vent support pending further neuroimaging and family discussion. 2. Patient likely suffered a severe anoxic brain injury and she is not a candidate for hypothermic protocol. 3. Continue antibiotics, bronchodilator and mucolytics. 4. IV hydration. 5. Pressors and midodrine. 6. Status post temporary pacemaker placement. 7. DVT and GI prophylaxis. 8. I had a length discussion with the patient last admission about goals of care and I suggested at the time to pursue the Hospice path; however, patient wasn't ready yet at that time, in spite of extensive discussion and explanation of her prognosis and condition. At this point patient likely suffered a severe anoxic brain injury and will continue to discuss with family her prognosis and suggesting hospice care as a best approach for this patient. 9. Critical care time spent with this patient was 45 minutes. Dictated by... Kathrin Phipps TD: 11/07/2016 07:59 JOB #: [id number] Unit #: [id number] #: [id number] Patient: TIMBO ARMENTA CONSULTATION REPORT Page 1 of 1 X ARABELLA PEREZ MD CONSULTATION REPORT
--- NOTE | ~2016-11-06 | HP ---
Unit #: [id number] #: [id number] Patient: TIMBO BRITO [id number] [address] [address] [id number] MR#: [id number] NAME: TIMBO BRITO ROOM: [facility] Age: 70 Sex: F Admission Date: 11/06/2016 : 1945 Attending Physician: Rand Kolb M.D. Primary Care Physician: Castillo Soares M.D. HISTORY AND PHYSICAL ADMISSION DIAGNOSES 1. Status post cardiopulmonary arrest. 2. Acute respiratory failure. 3. History of worsening lung cancer. 4. History of recent postobstructive pneumonia. 5. Diabetes. 6. Chronic obstructive pulmonary disease. HISTORY OF PRESENT ILLNESS Ms. Timbo Brito is a 70-year-old female, patient of Dr. Soares, who was recently discharged from our service on November 04 to a snf where she was found down and started on CPR. It looks like EMS arrived and worked on her for an extensive period of time. Got the pulse back and brought to the [facility] ER. Currently, she is intubated and unresponsive, worrisome for anoxic brain injury. Therefore, I am not able to obtain any further history neither am I able to obtain any review of systems. PAST MEDICAL HISTORY 1. Significant for worsening lung cancer. 2. Chronic hyponatremia. 3. Diabetes. 4. COPD. 5. Emphysema. 6. History of tobacco use. PAST SURGICAL HISTORY 1. Hysterectomy. 2. Rectovaginal repair. 3. Bronchoscopy. HOME MEDICATIONS I do not have in front of me but this will be clarified and restart accordingly. ALLERGIES Albuterol, erythromycin, Benadryl, latex, phenylephrine. SOCIAL HISTORY No current history of tobacco, alcohol, or illicit drugs. FAMILY HISTORY Unremarkable. Unit #: [id number] #: [id number] Patient: TIMBO BRITO PHYSICAL EXAMINATION GENERAL: Patient is a 70-year-old ill-appearing female who is intubated on mechanical ventilation. VITAL SIGNS: BP 169/58, heart rate 72, respirations 20, temperature 93. Blood gases show pH 7.03, pCO2 of 73. DIAGNOSTIC STUDIES LABORATORY: Chemistry significant for blood glucose of 228, CO2 of 18, calcium 7.3. AST 188, ALT 123, alkaline phosphatase 121. Coagulation panel: PT 15.1, INR 1.4, PTT 50.4. Troponin 0.16, CKMB 13.2. Hematology: White count 22.5, hemoglobin and hematocrit 8.2 and 26.9, platelets 196,000. IMAGING: Chest x-ray: Diffuse interstitial changes. No pleural effusion. Large mass-like opacity in the right apex and right mid lung appears stable, perhaps minimally increased. ASSESSMENT AND PLAN 1. Cardiopulmonary arrest, status post resuscitation, now in acute respiratory failure, going on the vent. Family at the bedside indicated that patient is a full code. The duration of patient being in cardiac arrest and her unresponsiveness worrisome for anoxic brain injury. Continue vent management currently per Dr. Venegas. Continue hemodynamic support per Dr. Loco. Will ask neurology evaluation for possible anoxic brain injury. 2. Hypothermia with likely sepsis: Will followup on cultures. Treat with empiric antibiotics. Nasreen Hugger and body warmer and hemodynamic support as above. 3. Worsening lung cancer. 4. Chronic obstructive pulmonary disease. 5. Diabetes. 6. Chronic hyponatremia. 7. Metabolic acidosis. 8. Continue gastrointestinal and deep venous thrombosis prophylaxis. PROGNOSIS Very grave, will discuss with the family and await the neurology evaluation. Dictated by Kathrin Griffiths/spencer TD: 11/06/2016 16:59 JOB #: [id number] Unit #: [id number] #: [id number] Patient: TIMBO BRITO HISTORY AND PHYSICAL Page 1 of 1 X Jack Morgan MD HISTORY AND PHYSICAL
--- NOTE | ~2016-11-06 | EKG ---
PATIENT: TIMBO ARMENTA UNIT #: [id number] Ventricular Rate: 122 BPM Atrial Rate: 122 BPM P-R Interval: 168 ms QRS Duration: 110 ms Q-T Interval: 306 ms QTC Calculation(Bezet): 436 ms P [place]: 74 degrees Calculated R [place]: -2 degrees Calculated T [place]: 50 degrees Diagnosis Line: Sinus tachycardia Diagnosis Line: Right bundle branch block Diagnosis Line: Abnormal ECG Diagnosis Line: When compared with ECG of 06-NOV-2016 11:25, Diagnosis Line: (unconfirmed) Diagnosis Line: Sinus rhythm is no longer with complete heart Diagnosis Line: block Diagnosis Line: Vent. rate has increased BY 95 BPM Diagnosis Line: Left anterior fascicular block is no longer Diagnosis Line: Present Diagnosis Line: Nonspecific T wave abnormality no longer evident Diagnosis Line: in Inferior leads Diagnosis Line: Confirmed by SARKIS BRODY MD ([id number]) on 11/12/2016 Diagnosis Line: 7:35:11 AM INTERPRETING MD: MARY GRACE SAL
--- NOTE | ~2016-11-06 | OR ---
Unit #: [id number] #: [id number] Patient: TIMBO ARMENTA [id number] [address] [place], [place] [address] [id number] I MR#: [id number] NAME: TIMBO ARMENTA ROOM: [facility] Date of Procedure: 11/06/2016 Admission Date: 11/06/2016 Surgeon: Seth Loco M.D. : 1945 Attending Physician: Rand Kolb M.D. Primary Care Physician: Castillo Soares M.D. OPERATIVE REPORT PROCEDURE PERFORMED Temporary transvenous pacemaker insertion. INDICATION FOR PROCEDURES Resuscitated cardiac arrest secondary to high-grade AV block. DESCRIPTION OF PROCEDURE Under aseptic precautions, the right internal jugular vein was punctured using a Cook needle. A J-tip guidewire was advanced without any difficulty over which a 6-Danish Hemaquet sheath was put in place. A 5-Danish balloon tipped unipolar pacing catheter was advanced under EKG guidance. Ventricular pacing was obtained at the milliamps of 5 and a heart rate of 100 beats per minute. Pacemaker rate was cut down to 70 beats per minute and the patient was observed. An hour later, there was noncapture of the pacemaker. She was taken to the cardiac catheterization lab, where the tip of the pacemaker wire was again advanced into the right ventricular apex under fluoroscopic vision. Excellent pacing thresholds were obtained. Pacemaker wire was sutured in place. FINAL IMPRESSION Successful temporary transvenous pacemaker insertion under EKG guidance and fluoroscopic guidance. COMPLICATIONS None. Dictated by... Kathrin Lewis/roslyn TD: 11/07/2016 14:27 JOB #: [id number] Unit #: [id number] #: [id number] Patient: TIMBO ARMENTA OPERATIVE REPORT Page 1 of 1 X Seth Loco MD X PROCEDURE OPERATIVE NOTE
--- NOTE | ~2016-11-06 | CO ---
Unit #: [id number] #: [id number] Patient: TIMBO ARMENTA [id number] [address] [place], [place] [address] [id number] I MR#: [id number] NAME: TIMBO ARMENTA ROOM: [facility] Age: 70 Sex: F Admission Date: 11/06/2016 : 1945 Attending Physician: Rand Kolb M.D. Primary Care Physician: Castillo Soares M.D. CONSULTATION REPORT PRIMARY CARE PHYSICIAN Dr. Soares. REASON FOR CONSULTATION Bradycardia. HISTORY OF PRESENT ILLNESS This is a 70-year-old white female, who has a history of non-small cell lung cancer and was recently discharged on 11/04/2016 with acute hypoxic respiratory failure and post-obstructive pneumonia. According to recent CTA of her chest, she has a very large malignant tumor in the right upper lobe with ostial destruction of three ribs. After discharge, the patient went to the assisted. Today, she was found unresponsive. She was in PEA arrest. CPR was ensued that was prolonged for greater than an hour. On arrival to the emergency room, the patient was intubated. The electrocardiogram showed second-degree AV block. She was hypotensive with blood pressure 66/33 mmHg. She was started on dobutamine for heart rate and Levophed drip for blood pressure support. She also received a liter of normal saline IV bolus. According to two daughters, who were at bedside, the patient has had no prior cardiac history or testing. She had a mildly elevated troponin of 0.16. Recent TSH was 1.29. She does have a longstanding history of COPD and chronic respiratory failure. She was to have an outpatient PET scan done; however, the patient has been unable to follow through according to the family from apparent transportation issues. According to the records, she has had no chemo or radiation treatments. PAST MEDICAL HISTORY 1. Diabetes mellitus type 2. 2. COPD. 3. Chronic respiratory failure. 4. Non-small cell lung cancer in the right upper lobe stage III. 5. Recent post-obstructive pneumonia. 6. Chronic pain syndrome. 7. Anemia. 8. Former smoker. PAST SURGICAL HISTORY 1. Hysterectomy. 2. Bladder repair. 3. Rectal repair. 4. Cataract extraction. 5. Left foot I and D secondary to infection. Unit #: [id number] #: [id number] Patient: TIMBO ARMENTA SOCIAL HISTORY The patient had a longstanding history of tobacco use. There is no illicit drug use recorded. FAMILY HISTORY Noncontributory. ALLERGIES Albuterol, phenylephrine, erythromycin, Benadryl, and latex. HOME MEDICATIONS 1. Acetaminophen 650 mg q.6 hours p.r.n. 2. NovoLog per sliding scale. 3. Colace 100 mg b.i.d. 4. MiraLAX 17 g daily. 5. Probiotic 250 mg b.i.d. 6. Glucophage 1000 mg b.i.d. 7. Vitamin D2 50,000 units weekly. REVIEW OF SYSTEMS Unable to obtain because the patient is currently intubated. PHYSICAL EXAMINATION VITAL SIGNS: Blood pressure 94/43 to 146/65, heart rate 70, temperature 92.2. GENERAL: This is an ill appearing 70-year-old white female, who is currently intubated. NECK: Trachea is midline. No thyromegaly. No jugular venous distention. HEART: S1 and S2. Heart sounds are normal. No murmurs, rubs, or clicks. Irregularly irregular rhythm that is bradycardic. LUNGS: With coarse rhonchi at both lungs, more diminished on the right greater than the left. ABDOMEN: Distended with hypoactive bowel sounds. EXTREMITIES: With absent pedal pulses and no leg edema. SKIN: Pale and dry. This noted for cyanosis to her elbows and knees and some mottling of her lower extremity. DIAGNOSTIC STUDIES LABORATORY RESULTS: Hemoglobin 8.2, hematocrit 26.9, platelet count 296, white count 27.5. Sodium 132, potassium 5.2, BUN 20, creatinine 0.7, glucose 162. INR 1.4. Troponin 0.06. Recent TSH 1.29. IMAGING STUDIES: Chest x-ray shows a large right upper lobe mass. There is mild interstitial edema. CARDIOVASCULAR STUDIES: Electrocardiogram shows sinus bradycardia with second-degree AV block with 4:1 conduction rate of 27 beats per minute with left anterior fascicular block, right bundle-branch block, and first-degree AV block. IMPRESSION 1. Resuscitated pulseless electrical activity arrest. 2. High-grade atrioventricular block. 3. Hypotension. 4. Hypothermia. 5. Questionable sepsis with leukocytosis. 6. Stage III non-small cell lung cancer. Unit #: [id number] #: [id number] Patient: TIMBO ARMENTA 7. Acute on chronic hypoxic respiratory failure. 8. Elevated troponin peaked at 0.16. PLAN 1. Cardiology was asked to see the patient emergently in the emergency room because of high-grade AV block. In review of electrocardiogram, the patient had trifascicular block with new right bundle-branch block, first-degree AV block, and second-degree AV block with 4:1 conduction. There was also left anterior fascicular block. She required immediate temporary transvenous pacemaker insertion. This was successfully done in the right IJ per Dr. Loco. We will keep the settings rate of 70. 2. Continue vasoactive support with dopamine. We will wean Levophed as blood pressure tolerates. 3. Continue to trend troponin to rule out myocardial infarction. 4. 2D echocardiogram will be done to evaluate left ventricular systolic function. 5. Recent TSH was within normal limits. 6. The patient's prognosis is poor, but the family after discussion wants all measures taken. 7. We will continue to follow the patient. Thank you for allowing us to assist in this patient's care. Dictated by... Carlos SimonPPily. for Kathrin Lewis/roslyn TD: 11/07/2016 14:04 JOB #: [id number] CC: Castillo Soares M.D. CONSULTATION REPORT Page 1 of 1 X Chilo Lindsay APRN X CONSULTATION REPORT
--- NOTE | ~2016-11-06 | EKG ---
PATIENT: TIMBO ARMENTA UNIT #: [id number] Ventricular Rate: 27 BPM Atrial Rate: 108 BPM QRS Duration: 146 ms Q-T Interval: 526 ms QTC Calculation(Bezet): 352 ms P [place]: 77 degrees Calculated R [place]: -62 degrees Calculated T [place]: 73 degrees Diagnosis Line: Sinus tachycardia with complete heart block Diagnosis Line: Right bundle branch block Diagnosis Line: Left anterior fascicular block Diagnosis Line: Bifascicular block Diagnosis Line: Abnormal ECG Diagnosis Line: When compared with ECG of 23-OCT-2016 23:29, Diagnosis Line: Sinus rhythm is now Present with complete heart Diagnosis Line: block Diagnosis Line: Vent. rate has decreased BY 78 BPM Diagnosis Line: (RBBB and left anterior fascicular block) is now Diagnosis Line: Present Diagnosis Line: Confirmed by SARKIS BRODY MD ([id number]) on 11/12/2016 Diagnosis Line: 7:31:40 AM INTERPRETING MD: MARY GRACE SAL
--- NOTE | ~2016-11-06 | CR72 ---
[facility] A Service of [facility] & [facility] RADIOLOGY TEXT RESULTS PATIENT: TIMBO ARMENTA LOCATION: [facility] CICCU2-02 : 44 UNIT #: [id number] AGE: [address]: Rand Kolb MD SEX: F ORDER DR: [id number] [facility] [address] [place], [place] [address] [id number] MR#: [id number] Acc #: [id number] NAME: TIMBO ARMENTA : 1945 SEX: F STUDY DATE/TIME: 11/06/2016 10:58 UNIT: [facility] ROOM: STUDY DESCRIPTION: CR Chest Single View Portable Attending Physician: Mandeep Calvo M.D. Ordering Physician: Ed Jerman Seaman M.D. Primary Care Physician: Castillo Soares M.D. MEDICAL IMAGING REPORT This report is preliminary unless electronic signature is present EXAM Chest portable 11/06/2016, 10:58 hours. HISTORY 70-year-old woman who suffered full arrest today, respiratory failure. Intubation. COMPARISON CT angiogram of the chest 10/24/2016. FINDINGS Single view of the chest demonstrates a new endotracheal tube with tip 2 cm above the robert. Heart size is normal. There is pulmonary venous distension and interstitial prominence in the left lung and the right lung base increased over the prior exam. Mass-like opacity in the right upper chest is again demonstrated. There is an external pacer pad overlying the upper ribs. Patient did have rib destruction on CT 10/24/2016. There is no pleural effusion or pneumothorax. There is gaseous distension of the stomach. IMPRESSION 1. New endotracheal tube tip is 2 cm above the robert. 2. There is mild diffuse interstitial change throughout the left lung and the right lower lung, new from the prior study, suggesting an element of mild interstitial edema. There is no pleural effusion or pneumothorax. 3. Large mass-like opacity from the right apex to the right midlung appears stable to perhaps minimally increased. This is a known mass with central necrosis seen on 10/24/2016 CT. This is likely a lung cancer. 4. Gaseous distension of the stomach. Dictated by... [facility] A Service of [facility] & [facility] RADIOLOGY TEXT RESULTS PATIENT: TIMBO ARMENTA LOCATION: [address]03 : [birth year] UNIT #: [id number] AGE: [address]: Rand Kolb MD SEX: F ORDER DR: Bhavna Araya M.D. THIS IS AN ELECTRONICALLY VERIFIED REPORT Bhavna Araya M.D. at 11/06/2016 2:30 PM ENRIQUE/gael TD: 11/06/2016 13:57 JOB #: [id number] MEDICAL IMAGING REPORT Page 1 of 1 COPY
--- NOTE | ~2016-11-06 | CO ---
Unit #: [id number] #: [id number] Patient: TIMBO ARMENTA [id number] [facility]. [place], [place] [address] [id number] I MR#: [id number] NAME: TIMBO ARMENTA ROOM: [facility] Age: 70 Sex: F Admission Date: 11/06/2016 : 1945 Attending Physician: Rand Kolb M.D. Primary Care Physician: Castillo Soares M.D. Consultation Date: 11/06/2016 CONSULTATION REPORT PATIENT IDENTIFICATION This is a 70-year-old, apparently right-handed white female, who was evaluated in room ICU bed #2 at [facility]. SOURCE OF INFORMATION Essentially the medical records. PROBLEM LIST 1. This patient is status post cardiopulmonary arrest. 2. Acute respiratory failure. 3. History of worsening lung cancer for which she apparently has been deemed as not any kind of treatment candidate. 4. History of recent postobstructive pneumonia. 5. Diabetes. 6. Chronic obstructive pulmonary disease. 7. Emphysema. 8. History of tobacco use. 9. Status post hysterectomy. 10. Rectovaginal repair. 11. Bronchoscopy. HISTORY OF PRESENT ILLNESS This is a 70-year-old female, who is a patient of Dr. Soares, and was recently discharged from this institution on 11/04 to a halfway, in which she was found down and started CPR when EMS arrived, and they kept on doing CPR and got the pulse back and brought to the emergency room. She had to have a temporary pacemaker placed. When I saw her around 1645 hours, she was in coma with a Dima Coma Scale essentially of 2T and she had no eye signs. I was trying to get to the family, but they were not there. She was getting CPR and we worked on her for almost 1 hour. No falls or injuries. Nothing suggesting seizures. No tobacco, alcohol, or drug use to cause this. Bilingual Office Assistant saw her and she was diagnosed with [id number] hypoxic hypercarbic respiratory failure and pulseless electrical activity cardiac arrest, stage III squamous cell lung cancer, and possible COPD exacerbation. Unit #: [id number] #: [id number] Patient: TIMBO ARMENTA No myoclonus or any other activity. As a matter of fact, no activity of any sort was otherwise observed. PAST MEDICAL HISTORY As discussed above. PAST SURGICAL HISTORY As discussed above. ALLERGIES 1. Albuterol. 2. Erythromycin. 3. Benadryl. 4. Latex. 5. Phenylephrine. MEDICATIONS Please refer to the discharge summary and medication that were started lately including, 1. Levaquin 750 mg, which she is supposed to have for a few more days. 2. Medrol Dosepak. 3. Florastor. 4. Percocet 10/325. 5. Protonix 40 mg p.o. daily. 6. Megace 400 mg daily. 7. Colace 100 mg twice a day. 8. MiraLAX 17 g daily. 9. Combivent mini-neb treatment q.i.d. and q.4 hours p.r.n. 10. Acetaminophen 650 mg q.6 p.r.n. 11. Magnesium oxide 400 mg b.i.d. 12. Lovenox 40 mg subcutaneously daily. 13. Neurontin 300 mg twice a day. 14. Zonegran 100 mg b.i.d. 15. Glucophage. FAMILY HISTORY Unremarkable, but further details are not known to me, and may not be important for her age and her present condition. SOCIAL HISTORY Currently in a halfway. Prior history of tobacco. No alcohol or drug use. REVIEW OF SYSTEMS Could not be obtained because of the present coma state. PHYSICAL EXAMINATION VITAL SIGNS: Temperature is 95 degrees centigrade, she came in essentially with a temperature of 92.2; pulse is 127. She has now a temporary pacemaker. Respirations are 19. She is in a ventilator and when I saw her, she was not overbreathing the vent. Blood pressure 122/74, O2 saturations were 94% to 100%. Weight of 138 pounds. BMI was 23. NEUROLOGIC: The patient is essentially in coma. She has a Dima coma scale of 2T. She has 0/3 eye signs. She is obviously not following commands or communicating. Cranial examination demonstrates no respond to threat. No corneals. No doll's eye. Pupils are about 4 mm and nonreactive. No dysconjugate gaze. I did not see any facial asymmetry. Unit #: [id number] #: [id number] Patient: TIMBO ARMENTA Hearing is questionable. Tongue was midline. I could not visualize oropharynx or uvula. Head turning was not seen. Motor examination, no responses of any kind were seen. Sensory examination, no response to any stimuli was seen. I could not get any reflexes. Gait and coordination could not be evaluated. DIAGNOSTIC STUDIES LABORATORY RESULTS: Reviewed. IMAGING RESULTS: CT of the head reviewed. It shows likely diffuse anoxic injury. 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 Very very poor prognostic picture and I would recommend comfort care considering her comorbidities and other issues and premorbid condition, but the family to decide and we will support whatever the family decides till her condition becomes clear as far as improvement or worsening is concerned, typically we will give them at least 72 hours and treat aggressively in the meantime and we will go from there. Nothing suggesting seizure or status. I will keep you informed. Call if any other questions, issues, or concerns. Dictated by... Ignacio Jerome M.D. REJI/roslyn TD: 11/08/2016 12:54 JOB #: [id number] CONSULTATION REPORT Page 1 of 1 X Ignacio Jerome MD X CONSULTATION REPORT
--- NOTE | ~2016-11-06 | CR72 ---
[facility] A Service of [facility] & [facility] RADIOLOGY TEXT RESULTS PATIENT: TIMBO ARMENTA LOCATION: [address] : [birth year] UNIT #: [id number] AGE: [address]: Rand Kolb MD SEX: F ORDER DR: [id number] [facility] [address] [facility] [facility] [place], [place] [address] [id number] I MR#: [id number] Acc #: [id number] NAME: TIMBO ARMENTA : 1945 SEX: F STUDY DATE/TIME: 11/09/2016 6:07 UNIT: [facility] ROOM: [facility] STUDY DESCRIPTION: CR Chest Single View Portable Attending Physician: Rand Kolb M.D. Ordering Physician: Kina Guo M.D. Primary Care Physician: Castillo Soares M.D. MEDICAL IMAGING REPORT This report is preliminary unless electronic signature is present EXAM Portable chest. INDICATION Respiratory failure for 3 days. FINDINGS Comparison made to a prior exam from November 06, 2016. Endotracheal tube is present which terminates above the level of the robert. Patient has a nasogastric tube with its tip located within the fundus of the stomach. Right internal jugular vein pacing catheter is noted. Heart size is within normal limits. Persistent opacification of the right upper lobe is noted. There is some increasing atelectasis noted at the right lung base and the and there is diffuse interstitial coarsening seen throughout both lungs not significantly changed when compared to the prior study. Dictated by... Luci Sin M.D. THIS IS AN ELECTRONICALLY VERIFIED REPORT Luci Sin M.D. at 11/10/2016 5:02 PM AFF/lb TD: 11/10/2016 08:55 JOB #: [id number] MEDICAL IMAGING REPORT Page 1 of 1 COPY
[~2016-11-06 10:47] MED LIST changes: +GLUCOPHAGE500 MG PO; +LEVAQUIN PO; +MAG-OX 400400 M1 PO; +NEURONTIN300 MG PO; +NOVOLOG100 U/ML; +PERCOCET10 PO; +PROBIOTIC250 MG PO; +TYL325 PO; +ZONEGRAN100 M1 PO
[2016-11-06] MEDS ORDERED: VITAMIN D250000 UNIT PO (11:33)
[2016-11-06] MEDS ORDERED: METFORMIN PO (11:33)
[2016-11-06] MEDS ORDERED: PATIENT'S PHARMACY (11:34)
[2016-11-06 11:54] LABS: POC - CKMB 13.2 ng/mL (0.0-7.9); POC - TROPONIN 0.16 ng/mL (<=0.05)
[2016-11-06 12:00] LABS: ARTERIAL BLD GAS O2 SATURATION 97.9 % (90.0-100.0); ARTERIAL BLOOD GAS CARBOXY HB 0.8 %sat (0.0-9.0); ARTERIAL BLOOD GAS HCO3 19.8 mmol/L; ARTERIAL BLOOD GAS MET HB 0.8 %sat (0.0-2.0)
[2016-11-06 12:02] LABS: ARTERIAL BLOOD GAS ALLEN TEST NORMAL; ARTERIAL BLOOD GAS ART SITE RIGHT RADIAL; ARTERIAL BLOOD GAS DELIVERY VENT; ARTERIAL BLOOD GAS PCO2 73.9 mmHg (35.0-45.0); ARTERIAL BLOOD GAS VENT MODE A/C; ARTERIAL BLOOD GAS pH 7.036 (7.350-7.450); ARTERIAL DRAW? YES
[2016-11-06 12:07] LABS: BASOPHIL# 0.1 X10e3 (0-0.3); BASOPHIL% 0.6 % (0-2.5); EOSINOPHIL# 0.2 X10e3 (0-0.7); EOSINOPHIL% 0.9 % (0.0-7.0); HEMATOCRIT 26.9 % (35.0-45.0); HEMOGLOBIN 8.2 gm/dL (12.0-16.0); LYMPHOCYTE# 2.1 X10e3 (1.0-3.5); LYMPHOCYTE% 9.3 % (17.0-45.0); MEAN CELL VOLUME 95.1 FL (83-96); MEAN CORPUSCULAR HGB CONC 30.5 g/dL (30-36); MEAN PLATELET VOLUME 7.1 FL (6.5-11.5); MONOCYTE# 0.3 X10e3 (0-1.0); MONOCYTE% 1.3 % (3.0-12.0); NEUTROPHIL# 19.8 X10e3 (1.5-7.1); NEUTROPHIL% 87.9 % (40-75); PLATELET COUNT 296 X10e3 (140-420); RED BLOOD COUNT 2.83 X10e (3.90-5.30); RED CELL DISTRIBUTION WIDTH 17.1 % (11.0-15.5); WHITE BLOOD COUNT 22.5 X10e3 (4.0-10.5)
[2016-11-06 12:10] LABS: DIFF IND YES
[2016-11-06 12:18] LABS: INR 1.4; PROTHROMBIN TIME (PATIENT) 15.1 SECONDS (10.0-11.7)
[2016-11-06 12:19] LABS: PARTIAL THROMBOPLASTIN TIME 50.4 SECONDS (23.5-31.3)
[2016-11-06 12:33] LABS: ALBUMIN SERUM 1.6 g/dL (3.5-5.0); BILIRUBIN, DIRECT 0.2 mg/dL (0.0-0.2); BILIRUBIN,INDIRECT 0.2 mg/dL (0.0-0.9); BILIRUBIN,TOTAL 0.4 mg/dL (0.2-2.0); CALCIUM SERUM 7.3 mg/dL (8.4-10.2); CREATININE SERUM 0.8 mg/dL (0.6-1.4); GLOM FILT RATE Estimated 74.2 mL/min (>60); POTASSIUM 4.4 mmol/L (3.5-5.1); PROTEIN TOTAL SERUM 3.9 g/dL (6.0-8.3)
[2016-11-06 13:04] LABS: NUCLEATED RED BLOOD CELL 1 /100 (0); PLATELET ESTIMATE NORMAL (NORMAL)
[2016-11-06 13:05] LABS: ANISOCYTOSIS SL; POIKILOCYTOSIS SL
[2016-11-06 18:33] LABS: ARTERIAL BLD GAS O2 SATURATION 94.8 % (90.0-100.0); ARTERIAL BLOOD GAS CARBOXY HB 0.8 %sat (0.0-9.0); ARTERIAL BLOOD GAS HCO3 25.2 mmol/L; ARTERIAL BLOOD GAS MET HB 0.6 %sat (0.0-2.0); ARTERIAL BLOOD GAS pH 7.262 (7.350-7.450)
[2016-11-06 18:34] LABS: ARTERIAL BLOOD GAS ALLEN TEST NORMAL; ARTERIAL BLOOD GAS ART SITE RIGHT RADIAL; ARTERIAL BLOOD GAS DELIVERY VENT; ARTERIAL BLOOD GAS VENT MODE AC; ARTERIAL DRAW? YES
[2016-11-06 20:45] LABS: %MB 10.4 % (0.0-4.0); MB 30.9 ng/ml
[2016-11-07 03:45] LABS: ARTERIAL BLD GAS O2 SATURATION 95.3 % (90.0-100.0); ARTERIAL BLOOD GAS CARBOXY HB 0.7 %sat (0.0-9.0); ARTERIAL BLOOD GAS HCO3 22.3 mmol/L; ARTERIAL BLOOD GAS MET HB 0.7 %sat (0.0-2.0); ARTERIAL BLOOD GAS PCO2 48.9 mmHg (35.0-45.0); ARTERIAL BLOOD GAS pH 7.267 (7.350-7.450)
[2016-11-07 03:46] LABS: ARTERIAL BLOOD GAS ALLEN TEST NORMAL; ARTERIAL BLOOD GAS ART SITE RIGHT RADIAL; ARTERIAL BLOOD GAS DELIVERY VENT; ARTERIAL BLOOD GAS VENT MODE AC; ARTERIAL DRAW? YES
[2016-11-07 08:46] LABS: BASOPHIL% 0.1 % (0-2.5); EOSINOPHIL% 0.1 % (0.0-7.0); HEMATOCRIT 32.7 % (35.0-45.0); LYMPHOCYTE# 1.4 X10e3 (1.0-3.5); LYMPHOCYTE% 6.1 % (17.0-45.0); MEAN CORPUSCULAR HEMOGLOBIN 28.6 PG (28-34); MEAN CORPUSCULAR HGB CONC 31.2 g/dL (30-36); MEAN PLATELET VOLUME 8.4 FL (6.5-11.5); MONOCYTE# 0.8 X10e3 (0-1.0); MONOCYTE% 3.4 % (3.0-12.0); NEUTROPHIL# 20.1 X10e3 (1.5-7.1); NEUTROPHIL% 90.3 % (40-75); PLATELET COUNT 223 X10e3 (140-420); RED BLOOD COUNT 3.57 X10e (3.90-5.30); RED CELL DISTRIBUTION WIDTH 17.2 % (11.0-15.5); WHITE BLOOD COUNT 22.3 X10e3 (4.0-10.5)
[2016-11-07 08:47] LABS: TMH HEPATITIS B SURFACE AG -JH Negative (Negative); TMH HEPATITIS C AB - JH Negative (Negative)
[2016-11-07 08:51] LABS: HEMOGLOBIN 10.2 gm/dL (12.0-16.0)
[2016-11-07 08:52] LABS: MEAN CELL VOLUME 91.6 FL (83-96)
[2016-11-07 08:53] LABS: CALCIUM SERUM 7.6 mg/dL (8.4-10.2); CREATININE SERUM 1.5 mg/dL (0.6-1.4); DIFF IND NO; GLOM FILT RATE Estimated 34.7 mL/min (>60)
[2016-11-08 04:29] LABS: ARTERIAL BLD GAS O2 SATURATION 95.2 % (90.0-100.0); ARTERIAL BLOOD GAS CARBOXY HB 0.6 %sat (0.0-9.0); ARTERIAL BLOOD GAS HCO3 22.2 mmol/L; ARTERIAL BLOOD GAS MET HB 0.4 %sat (0.0-2.0); ARTERIAL BLOOD GAS PCO2 42.9 mmHg (35.0-45.0); ARTERIAL BLOOD GAS pH 7.322 (7.350-7.450)
[2016-11-08 04:39] LABS: ARTERIAL BLOOD GAS ALLEN TEST NORMAL; ARTERIAL BLOOD GAS ART SITE RIGHT RADIAL; ARTERIAL BLOOD GAS DELIVERY VENT; ARTERIAL BLOOD GAS PO2 79.2 mmHg (80.0-100); ARTERIAL BLOOD GAS VENT MODE AC; ARTERIAL DRAW? YES
[2016-11-08 05:50] LABS: BASOPHIL% 0.1 % (0-2.5); HEMATOCRIT 27.5 % (35.0-45.0); HEMOGLOBIN 8.9 gm/dL (12.0-16.0); LYMPHOCYTE# 1.1 X10e3 (1.0-3.5); LYMPHOCYTE% 3.7 % (17.0-45.0); MEAN CORPUSCULAR HEMOGLOBIN 28.8 PG (28-34); MEAN CORPUSCULAR HGB CONC 32.3 g/dL (30-36); MEAN PLATELET VOLUME 8.6 FL (6.5-11.5); MONOCYTE# 1.3 X10e3 (0-1.0); MONOCYTE% 4.4 % (3.0-12.0); NEUTROPHIL# 26.7 X10e3 (1.5-7.1); NEUTROPHIL% 91.8 % (40-75); PLATELET COUNT 164 X10e3 (140-420); RED BLOOD COUNT 3.09 X10e (3.90-5.30); RED CELL DISTRIBUTION WIDTH 17.5 % (11.0-15.5)
[2016-11-08 05:51] LABS: DIFF IND NO
[2016-11-08 06:10] LABS: BUN/CREATININE RATIO 20.95; CALCIUM SERUM 8.1 mg/dL (8.4-10.2); CREATININE SERUM 2.1 mg/dL (0.6-1.4); GLOM FILT RATE Estimated 23.1 mL/min (>60)
[2016-11-09 04:24] LABS: ARTERIAL BLD GAS O2 SATURATION 99.8 % (90.0-100.0); ARTERIAL BLOOD GAS ALLEN TEST NORMAL; ARTERIAL BLOOD GAS ART SITE LEFT RADIAL; ARTERIAL BLOOD GAS CARBOXY HB 0.6 %sat (0.0-9.0); ARTERIAL BLOOD GAS DELIVERY VENT; ARTERIAL BLOOD GAS HCO3 21.7 mmol/L; ARTERIAL BLOOD GAS PCO2 38.2 mmHg (35.0-45.0); ARTERIAL BLOOD GAS VENT MODE AC; ARTERIAL BLOOD GAS pH 7.363 (7.350-7.450); ARTERIAL DRAW? YES
[2016-11-09 04:49] LABS: HEMATOCRIT 26.2 % (35.0-45.0); HEMOGLOBIN 8.3 gm/dL (12.0-16.0); LYMPHOCYTE# 0.9 X10e3 (1.0-3.5); LYMPHOCYTE% 2.7 % (17.0-45.0); MEAN CELL VOLUME 88.6 FL (83-96); MEAN CORPUSCULAR HEMOGLOBIN 28.1 PG (28-34); MEAN CORPUSCULAR HGB CONC 31.8 g/dL (30-36); MEAN PLATELET VOLUME 8.9 FL (6.5-11.5); MONOCYTE# 1.1 X10e3 (0-1.0); MONOCYTE% 3.1 % (3.0-12.0); NEUTROPHIL# 31.8 X10e3 (1.5-7.1); NEUTROPHIL% 94.2 % (40-75); PLATELET COUNT 142 X10e3 (140-420); RED BLOOD COUNT 2.95 X10e (3.90-5.30); RED CELL DISTRIBUTION WIDTH 17.3 % (11.0-15.5); WHITE BLOOD COUNT 33.8 X10e3 (4.0-10.5)
[2016-11-09 04:51] LABS: DIFF IND NO
[2016-11-09 05:09] LABS: ALBUMIN SERUM 1.6 g/dL (3.5-5.0); BILIRUBIN,TOTAL 0.4 mg/dL (0.2-2.0); BUN/CREATININE RATIO 21.25; CALCIUM SERUM 8.5 mg/dL (8.4-10.2); CREATININE SERUM 2.4 mg/dL (0.6-1.4); GLOM FILT RATE Estimated 19.7 mL/min (>60); POTASSIUM 4.8 mmol/L (3.5-5.1); PROTEIN TOTAL SERUM 4.8 g/dL (6.0-8.3)
== END 2016-11-09 15:39 | disposition expired | DRG 296 ==
LOC: CED 10:47 → CEDOF 14:10 → CED 14:24 → CICCU2 14:27 → CEDOF 14:27 → CICCU3 11-08 00:29
PROVIDERS: Emergency Medicine; Internal Medicine; Internal Medicine Cardiovascular Disease; Internal Medicine Pulmonary Disease; Physician Assistant Medical
PROC: 5A1945Z Respiratory Ventilation, 24-96 Consecutive Hours (ICD-10-PCS; principal; 2016-11-06)
PROC: 5A1223Z Performance of Cardiac Pacing, Continuous (ICD-10-PCS; 2016-11-06)
DX: I46.9 Cardiac arrest, cause unspecified (principal); A41.9 Sepsis, unspecified organism; J96.21 Acute and chronic respiratory failure with hypoxia; N17.0 Acute kidney failure with tubular necrosis; G93.1 Anoxic brain damage, not elsewhere classified; J18.8 Other pneumonia, unspecified organism; E87.2 Acidosis; J44.1 Chronic obstructive pulmonary disease with (acute) exacerbation; C34.90 Malignant neoplasm of unspecified part of unspecified bronchus or lung; J96.22 Acute and chronic respiratory failure with hypercapnia; E87.1 Hypo-osmolality and hyponatremia; T68.XXXA Hypothermia, initial encounter; D64.9 Anemia, unspecified; E11.9 Type 2 diabetes mellitus without complications; Z79.4 Long term (current) use of insulin; Z87.891 Personal history of nicotine dependence; Z90.710 Acquired absence of both cervix and uterus; I44.39 Other atrioventricular block; Z91.040 Latex allergy status; Z88.1 Allergy status to other antibiotic agents; Z88.8 Allergy status to other drugs, medicaments and biological substances
CPT/HCPCS: 36415; 36556; 36600; 51702; 70450; 71010; 76000; 80048; 80053; 80076; 80202; 82550; 82553; 82803; 82947; 83605; 84484; 85025; 85610; 85730; 86803; 86850; 86900; 86901; 87340; 87806; 93005; 93306; 94002; 94003; 94640; 94760; 94761; 96361; 96374; 96375; 96376; 99291; C9113; J0171; J0461; J1265; J1650; J1815; J2270; J2543; J2920; J3370